=== PATIENT | male | born 1960 | race Caucasian/White ===

== ENCOUNTER 2017-06-24 08:46 | Emergency (ER) | payer SELFPAY ==
[~2017-06-24] VITALS: Ht 177.8 cm; Wt 72.0 kg
[~2017-06-24 08:46] MED LIST: AMLO10 PO; HYDR-3288 PO; METO25TA3 PO; VENTAER INH
[2017-06-24 08:50] VITALS: BP 133/61; PULSE 97; RESP 16; TEMP 97.6; O2SAT 96
[2017-06-24] MEDS ORDERED: HYDR-3535 PO (08:55)
[2017-06-24] MEDS ORDERED: GABA300C5 PO (08:55)
[2017-06-24] MEDS ORDERED: ROBA750T PO (08:55)
[2017-06-24] MEDS ORDERED: methylPREDNISolone SOD SUCC 125 MG/2 ML VIAL IV PUSH ONE (09:00)
[2017-06-24] MEDS ORDERED: SODIUM CHLORIDE 0.9% FLUSH 10 ML FLUSH IVF PRN (09:00)
[2017-06-24 09:02] VITALS: BP 145/78; PULSE 77; RESP 18; O2SAT 96
--- NOTE | 2017-06-24 09:04 | PD ---
HPI Chief Complaint: Respiratory Symptoms Time Seen by Provider: 08:52 Travel History International Travel<30 days: No Contact w/Intl Traveler<30days: No Traveled to known affect area: No History of Present Illness HPI This 56-year-old male is complaining of shortness of breath for several days. He has a history of COPD. He smokes one pack per day. He has been having a productive cough for several weeks. The last few days he's been feeling short of breath. Feels weak overall. He is not having chest pain. He does have a history of paroxysmal atrial fibrillation. He had is a recovering alcoholic and has not drank for 9 months. He goes to . His atrial fibrillation was related to drinking. He is not in atrial fibrillation at this time. PFSH Past Medical History Arthritis: Yes (HIPS) Anxiety: Yes Depression: No Heart Rhythm Problems: Yes (SVT THIS ADMISSION) Cancer: No Cardiovascular Problems: No High Cholesterol: No (UNKNOWN) Chest Pain: No Congestive Heart Failure: No COPD: Yes Cerebrovascular Accident: No Diabetes: No Diminished Hearing: No Endocrine: No Gastrointestinal Disorders: Yes (DIVERTICULITIS, INGUINAL HERNIA) GERD: Yes Genitourinary: No Headaches: No Immune Disorder: No Implanted Vascular Access Dvce: Yes Musculoskeletal: Yes Neurologic: No Psychiatric: No Reproductive: No Respiratory: Yes (HX OF PNEUMONIA X3) Migraines: No Seizures: Yes (R/T ETOH WITHDRAWAL, LAST SEIZURE 6 YRS AGO) Sleep Apnea: No Thyroid Disease: No Ulcer: Yes Influenza Vaccination: No ?: Not Past Surgical History AICD: No Arteriovenous Shunt: No Body Medical Devices: pins in right ankle Insulin Pump: No Joint Replacement: No Pacemaker: No Other Surgery: Yes Social History Alcohol Use: No (DENIES) Tobacco Use: Yes (1 PPD) Substance Use: No Allergies-Medications (Allergen,Severity, Reaction): Coded Allergies: No Known Allergies (Verified , 06/24/17) Reported Meds & Prescriptions Reported Meds & Active Scripts Active Ventolin Hfa 18 GM Inh (Albuterol Sulfate) 90 Mcg/Act Aer 1 Puff INH Q4H PRN Reported Gabapentin 300 Mg Cap 300 Mg PO HS Robaxin (Methocarbamol) 750 Mg Tab 750 Mg PO QID Lortab (Hydrocodone-Acetaminophen) 10-325 Mg Tab 1 Tab PO Q6H PRN Review of Systems General / Constitutional: No: Fever, Chills Eyes: No: Diploplia, Blurred Vision HENT: No: Headaches, Vertigo Cardiovascular: Positive: Dyspnea on exertion, No: Chest Pain or Discomfort, Palpitations Respiratory: Positive: Cough, Shortness of Breath, Wheezing Gastrointestinal: No: Nausea, Vomiting Genitourinary: No: Urgency, Frequency Musculoskeletal: No: Myalgias, Arthralgias Skin: No Rash Neurologic: Positive: Weakness Hematologic/Lymphatic: No: Easy Bruising Physical Exam Narrative GENERAL: Well-developed male. Oxygen saturation on arrival is 97% SKIN: Focused skin assessment warm/dry. HEAD: Atraumatic. Normocephalic. EYES: Pupils equal and round. No scleral icterus. No injection or drainage. ENT: No nasal bleeding or discharge. Mucous membranes pink and moist. NECK: Trachea midline. No JVD. CARDIOVASCULAR: Regular rate and rhythm. No murmur appreciated. RESPIRATORY: No accessory muscle use. There are scattered wheezes and rhonchi Breath sounds equal bilaterally. GASTROINTESTINAL: Abdomen soft, non-tender, nondistended. Hepatic and splenic margins not palpable. MUSCULOSKELETAL: No obvious deformities. No clubbing. No cyanosis. No edema. NEUROLOGICAL: Awake and alert. No obvious cranial nerve deficits. Motor grossly within normal limits. Normal speech. PSYCHIATRIC: Appropriate mood and affect; insight and judgment normal. Data Data Last Documented VS Vital Signs Date Time Temp Pulse Resp B/P (MAP) Pulse Ox O2 Delivery O2 Flow Rate FiO2 06/24/17 10:08 18 95 Room Air 06/24/17 10:07 95 149/78 (101) 06/24/17 08:50 97.6 Orders Orders Complete Blood Count With Diff (06/24/17 08:59) Comprehensive Metabolic Panel (06/24/17 08:59) Iv Access Insert/Monitor (06/24/17 08:59) Ecg Monitoring (06/24/17 08:59) Oximetry (06/24/17 08:59) Oxygen Administration (06/24/17 08:59) Chest, Single Ap (06/24/17 08:59) Sodium Chloride 0.9% Flush (Ns Flush) (06/24/17 09:00) Methylprednisolone So Succ Inj (Solumedr (06/24/17 09:00) Albuterol-Ipratropium Neb (Duoneb Neb) (06/24/17 09:00) Ct Thorax/ Chest W Iv Contrast (06/24/17 10:10) Acetamin-Hydrocod 325-5 Mg ([place] 5-325 (06/24/17 10:15) Iohexol 350 Inj (Omnipaque 350 Inj) (06/24/17 10:50) Labs Laboratory Tests Test 06/24/17 09:05 White Blood Count 6.6 TH/MM3 Red Blood Count 4.84 MIL/MM3 Hemoglobin 15.8 GM/DL Hematocrit 46.9 % Mean Corpuscular Volume 97.0 FL Mean Corpuscular Hemoglobin 32.5 PG Mean Corpuscular Hemoglobin Concent 33.5 % Red Cell Distribution Width 12.9 % Platelet Count 225 TH/MM3 Mean Platelet Volume 7.3 FL Neutrophils (%) (Auto) 73.5 % Lymphocytes (%) (Auto) 19.6 % Monocytes (%) (Auto) 3.9 % Eosinophils (%) (Auto) 2.7 % Basophils (%) (Auto) 0.3 % Neutrophils # (Auto) 4.8 TH/MM3 Lymphocytes # (Auto) 1.3 TH/MM3 Monocytes # (Auto) 0.3 TH/MM3 Eosinophils # (Auto) 0.2 TH/MM3 Basophils # (Auto) 0.0 TH/MM3 CBC Comment DIFF FINAL Differential Comment Blood Urea Nitrogen 16 MG/DL Creatinine 0.84 MG/DL Random Glucose 120 MG/DL Total Protein 7.6 GM/DL Albumin 3.6 GM/DL Calcium Level 8.6 MG/DL Alkaline Phosphatase 91 U/L Aspartate Amino Transf (AST/SGOT) 6 U/L Alanine Aminotransferase (ALT/SGPT) 15 U/L Total Bilirubin 0.5 MG/DL Sodium Level 138 MEQ/L Potassium Level 4.3 MEQ/L Chloride Level 106 MEQ/L Carbon Dioxide Level 26.1 MEQ/L Anion Gap 6 MEQ/L Estimat Glomerular Filtration Rate 95 ML/MIN MDM Medical Decision Making Medical Screen Exam Complete: Yes Emergency Medical Condition: Yes Medical Record Reviewed: Yes Differential Diagnosis Differential includes COPD, pneumonia, Narrative Course Chest x-ray shows some areas of increased density in the left upper lobe and question of left hilar prominence. A CT was recommended. CT scan has been done. There are multiple areas of increased density seen in both lungs which are stable when compared to a CT pulmonary angiogram that was done in June 2014 so these areas of represent scarring. The patient has received repeated doses of albuterol with some improvement. Diagnosis Primary Impression: COPD (chronic obstructive pulmonary disease) Qualified Codes: J44.1 - Chronic obstructive pulmonary disease with (acute) exacerbation Scripts Albuterol 18 GM Inh (Ventolin Hfa 18 GM Inh) 90 Mcg/Act Aer 2 PUFF INH Q4H Y for SHORTNESS OF BREATH, #1 INHALER 0 Refills Prov: Neptali Mancini MD 06/24/17 Prednisone (Prednisone) 20 Mg Tab 20 MG PO DIRECTED, #24 TAB 0 Refills Take 60 MG daily x 4 days, then 40 MG x 4 days, then 20 MG daily x 4 days. Prov: Neptali Mancini MD 06/24/17 Amoxicillin (Amoxicillin) 500 Mg Tab 500 MG PO TID for Infection for 7 Days, TAB 0 Refills Prov: Neptali Mancini MD 06/24/17 Disposition: 01 DISCHARGE HOME Condition: Stable Neptali Mancini MD Jun 24, 2017 09:04
[2017-06-24 09:11] LABS: AUTOMATED NEUTROPHIL # 4.8 TH/MM3 (1.8-7.7); BASOPHIL % 0.3 % (0.0-2.0); EOSINOPHIL # 0.2 TH/MM3 (0-0.4); EOSINOPHIL % 2.7 % (0.0-4.0); HEMATOCRIT 46.9 % (39.0-51.0); HEMO FLAGS DIFF FINAL; LYMPH % 19.6 % (9.0-44.0); LYMPHOCYTE # 1.3 TH/MM3 (1.0-4.8); MEAN CORPUSCULAR HEMOGLOBIN 32.5 PG (27.0-34.0); MEAN CORPUSCULAR HGB CONC 33.5 % (32.0-36.0); MONO % 3.9 % (0.0-8.0); NEUT % 73.5 % (16.0-70.0); PLATELET COUNT 225 TH/MM3 (150-450); RED BLOOD COUNT 4.84 MIL/MM3 (4.50-5.90); RED CELL DISTRIBUTION WIDTH 12.9 % (11.6-17.2); WHITE BLOOD COUNT 6.6 TH/MM3 (4.0-11.0)
[2017-06-24] MEDS: RESP: ALBUTEROL 2.5 MG/IPRATROPIUM 0.5 MG NEB (SCH) INH ×2 (09:14→09:15)
--- NOTE | 2017-06-24 09:27 | RADRPT ---
EXAM DATE/TIME: 06/24/2017 09:10 [facility] COMPARISON: CHEST SINGLE AP, August 22, 2016, 6:34. INDICATIONS : Shortness of breath for 5 days MEDICAL HISTORY : None. SURGICAL HISTORY : None. ENCOUNTER: Initial ACUITY: 4 - 6 days PAIN SCORE: 3/10 LOCATION: Bilateral chest FINDINGS: The heart size is normal. The lungs appear hyperinflated. There is increased density at the superior lateral left upper lobe. A there some stable linear density seen in the right apex. The left hilar r egion appears prominent. A significant effusion is not seen. CONCLUSION: Possible increased density at the superior lateral left upper lung and prominence of the left hilar r egion. These areas could be further evaluated with a CT examination of the chest. Given the hilar pro minence, ideally this should be performed with intravenous contrast. Perry Benítez MD on June 24, 2017 at 9:23 Board Certified Radiologist. This report was verified electronically.
[2017-06-24 09:54] LABS: BICARBONATE 26.1 MEQ/L (21.0-32.0)
[2017-06-24 09:57] LABS: ALT (GPT) 15 U/L (12-78); AST (GOT) 6 U/L (15-37); GLOMERULAR FILTRATION RATE 95 ML/MIN (>89)
[2017-06-24 09:59] LABS: ANION GAP 6 MEQ/L (5-15); CHLORIDE 106 MEQ/L (98-107); POTASSIUM 4.3 MEQ/L (3.5-5.1); SODIUM (NA) 138 MEQ/L (136-145); TOTAL BILIRUBIN ADULT 0.5 MG/DL (0.2-1.0)
[2017-06-24 10:00] LABS: ALKALINE PHOSPHATASE 91 U/L (45-117); BLOOD UREA NITROGEN 16 MG/DL (7-18)
[2017-06-24 10:07] VITALS: BP 149/78; PULSE 95; RESP 18; O2SAT 95
[2017-06-24] MEDS ORDERED: ACETAMINOPHEN/HYDROcodone 325 MG/5 MG TAB PO ONE (10:15)
[2017-06-24] MEDS ORDERED: IOHEXOL 350 MG/ML 10 ML VIAL (for RAD DIAG) IVCONTRAST ONE (10:50)
--- NOTE | 2017-06-24 10:59 | RADRPT ---
EXAM DATE/TIME: 06/24/2017 10:35 [facility] COMPARISON: CT PULMONARY ANGIOGRAM, June 22, 2014, 16:11. INDICATIONS : Mass seen on Chest x-ray, shortness of breath for 5 days. IV CONTRAST: 75 cc Omnipaque 350 (iohexol) IV RADIATION DOSE: 10.32 CTDIvol (mGy) MEDICAL HISTORY : Diverticulitis. Cardiovascular disease Chronic obstructive pulmonary disease.Pneumonia x 3; C diff 20 14. Smoker SURGICAL HISTORY : None. ENCOUNTER: Initial ACUITY: 4 - 6 days PAIN SCALE: 6/10 LOCATION: chest TECHNIQUE: Volumetric scanning of the chest was performed. Using automated exposure control and adjustment of t he mA and/or kV according to patient size, radiation dose was kept as low as reasonably achievable to obtain optimal diagnostic quality images. DICOM format image data is available electronically for review and comparison. Follow-up recommendations for detected pulmonary nodules are based at a minimum on nodule size and pa tient risk factors according to Fleischner Society Guidelines. FINDINGS: LUNGS: There is emphysematous change in the upper lungs. There is increased density seen in the superior lat eral left upper chest that time the density on the chest x-ray. This measures approximately 3.8 x 1.9 cm. There is also an irregular 2 cm mass in the right upper lung. There is increased density in the posterior left upper lung measuring 2.0 x 1.3 cm. There is also some patchy density seen in the poste rior medial aspect of the superior segment of the left lower lobe. All these areas were present on th e prior CT of the chest performed on 06/22/2014. PLEURA: There is no pleural thickening or pleural effusion. MEDIASTINUM: The central pulmonary arteries appears somewhat prominent accounting for the prominence of the left h ilar region. Coronary artery calcification are present. There is a stable 1.3 cm soft tissue density/ possible lymph node seen in the right hilar region. No new or enlarging lymph nodes are seen. AXILLAE: Within normal limits. No lymphadenopathy. SKELETAL: Within normal limits for patient age. MISCELLANEOUS: The visualized upper abdominal organs demonstrate no acute abnormality. CONCLUSION: 1. Multiple areas of increased density seen in both lungs being more numerous on the left. These all appear stable suggesting that likely represent areas of scarring. 2. Emphysematous change in the lungs. Perry Benítez MD on June 24, 2017 at 10:50 Board Certified Radiologist. This report was verified electronically.
[2017-06-24 11:12] VITALS: RESP 18
[2017-06-24] MEDS ORDERED: AMOX500T PO (11:12)
[2017-06-24] MEDS ORDERED: PRED20 PO (11:12)
[2017-06-24] MEDS ORDERED: VENTAER INH (11:12)
[2017-06-24 11:18] VITALS: BP 144/75
== END 2017-06-24 11:21 | disposition home or self-care (01) ==
LOC: PHED 08:46
DX: J44.1 Chronic obstructive pulmonary disease with (acute) exacerbation (principal); R53.1 Weakness; F17.200 Nicotine dependence, unspecified, uncomplicated; Z87.39 Personal history of other diseases of the musculoskeletal system and connective tissue; Z86.59 Personal history of other mental and behavioral disorders; Z86.79 Personal history of other diseases of the circulatory system; Z87.09 Personal history of other diseases of the respiratory system; Z87.19 Personal history of other diseases of the digestive system; Z86.69 Personal history of other diseases of the nervous system and sense organs
CPT/HCPCS: 71010; 71260; 80053; 85025; 94640; 94664; 96374; 99285; J2930; Q9967

== ENCOUNTER 2017-11-09 06:52 | Inpatient (IN) | payer SELFPAY ==
[~2017-11-09] VITALS: Ht 177.8 cm; Wt 69.0 kg
[2017-11-09] VITALS (8 sets, daily range): BP systolic 108–162; BP diastolic 69–97; PULSE 93–114; RESP 16–20; TEMP 97.5–99.3; O2SAT 93–96
[~2017-11-09 06:52] MED LIST changes: -AMLO10 PO; +AMOX500T PO; +GABA300C5 PO; -HYDR-3288 PO; +HYDR-3535 PO; -METO25TA3 PO; +PRED20 PO; +ROBA750T PO
--- NOTE | 2017-11-09 07:38 | PD ---
HPI Chief Complaint: Respiratory Symptoms Time Seen by Provider: 07:27 Travel History International Travel<30 days: No Contact w/Intl Traveler<30days: No Traveled to known affect area: No History of Present Illness HPI 57yo M with PMH of COPD presents to the ED with c/o sob for 1 week. Said he feels worst with walking and feels sob just walking 10 steps which is new for him. Has midsternal chest soreness and not really pain. +Cough. Also with throat pain for 2 weeks. Denies any fever, n/v, abdominal pain, focal weakness or numbness. Pt fell down a few steps of stairs 2 days ago but only mention it when I ask about the ecchymoses around left eye. Denies any LOC, headache, visual changes or any anticoagulation. PFSH Past Medical History Arthritis: Yes (HIPS) Anxiety: Yes Depression: No Heart Rhythm Problems: Yes (SVT THIS ADMISSION) Cancer: No Cardiovascular Problems: Yes (hx of htn but declines at this time) High Cholesterol: No (UNKNOWN) Chest Pain: No Congestive Heart Failure: No COPD: Yes Cerebrovascular Accident: No Diabetes: No Diminished Hearing: No Endocrine: No Gastrointestinal Disorders: Yes (DIVERTICULITIS, INGUINAL HERNIA) GERD: Yes Genitourinary: No Headaches: No Immune Disorder: No Implanted Vascular Access Dvce: Yes Musculoskeletal: Yes Neurologic: No Psychiatric: No Reproductive: No Respiratory: Yes (copd) Migraines: No Seizures: Yes (R/T ETOH WITHDRAWAL, LAST SEIZURE 6 YRS AGO) Sleep Apnea: No Thyroid Disease: No Ulcer: Yes Past Surgical History AICD: No Arteriovenous Shunt: No Body Medical Devices: pins in right ankle Insulin Pump: No Joint Replacement: No Pacemaker: No Other Surgery: Yes Social History Alcohol Use: No (DENIES) Tobacco Use: Yes (1 PPD) Substance Use: No Allergies-Medications (Allergen,Severity, Reaction): Coded Allergies: No Known Allergies (Verified Adverse Reaction, Unknown, 11/09/17) Reported Meds & Prescriptions Reported Meds & Active Scripts Active Ventolin Hfa 18 GM Inh (Albuterol Sulfate) 90 Mcg/Act Aer 1 Puff INH Q4H PRN Reported [place] (Hydrocodone-Acetaminophen) 7.5-325 mg Tab 1 Tab PO Q6H PRN Gabapentin 300 Mg Cap 300 Mg PO HS Robaxin (Methocarbamol) 750 Mg Tab 750 Mg PO QID Review of Systems Except as stated in HPI: all other systems reviewed are Neg Physical Exam Narrative GENERAL: 57yo M in mild distress. SKIN: Focused skin assessment warm/dry. HEAD: Atraumatic. Normocephalic. EYES: Pupils equal and round. No scleral icterus. No injection or drainage. ENT: No nasal bleeding or discharge. Mucous membranes pink and moist. NECK: Trachea midline. No JVD. CARDIOVASCULAR: Regular rate and rhythm. No murmur appreciated. RESPIRATORY: No accessory muscle use. Coarse breath sounds bilaterally. GASTROINTESTINAL: Abdomen soft, non-tender, nondistended. +Ecchymoses in left mid abdomen. MUSCULOSKELETAL: No obvious deformities. No clubbing. No cyanosis. No edema. NEUROLOGICAL: Awake and alert. No obvious cranial nerve deficits. Motor grossly within normal limits. Normal speech. PSYCHIATRIC: Appropriate mood and affect; insight and judgment normal. Data Data Last Documented VS Vital Signs Date Time Temp Pulse Resp B/P (MAP) Pulse Ox O2 Delivery O2 Flow Rate FiO2 11/09/17 08:45 103 20 121/70 (87) 96 Room Air 11/09/17 07:02 97.5 Orders Orders Complete Blood Count With Diff (11/09/17 07:37) Basic Metabolic Panel (Bmp) (11/09/17 07:37) Act Partial Throm Time (Ptt) (11/09/17 07:37) Prothrombin Time / Inr (Pt) (11/09/17 07:37) Magnesium (Mg) (11/09/17 07:37) Troponin I (11/09/17 07:37) Chest, Single Ap (11/09/17 07:37) Methylprednisolone So Succ Inj (Solumedr (11/09/17 07:45) Albuterol-Ipratropium Neb (Duoneb Neb) (11/09/17 07:45) B-Type Natriuretic Peptide (11/09/17 07:37) Electrocardiogram (11/09/17 ) Sodium Chlor 0.9% 1000 Ml Inj (Ns 1000 M (11/09/17 09:00) Thiamine Inj (Thiamine Inj) (11/09/17 09:15) Lorazepam Inj (Ativan Inj) (11/09/17 09:15) Admit Order (Ed Use Only) (11/09/17 09:16) Labs Laboratory Tests Test 11/09/17 07:50 White Blood Count 10.9 TH/MM3 Red Blood Count 4.14 MIL/MM3 Hemoglobin 15.1 GM/DL Hematocrit 44.0 % Mean Corpuscular Volume 106.5 FL Mean Corpuscular Hemoglobin 36.5 PG Mean Corpuscular Hemoglobin Concent 34.3 % Red Cell Distribution Width 15.5 % Platelet Count 114 TH/MM3 Mean Platelet Volume 7.8 FL Neutrophils (%) (Auto) 86.2 % Lymphocytes (%) (Auto) 8.3 % Monocytes (%) (Auto) 3.1 % Eosinophils (%) (Auto) 0.7 % Basophils (%) (Auto) 1.7 % Neutrophils # (Auto) 9.4 TH/MM3 Lymphocytes # (Auto) 0.9 TH/MM3 Monocytes # (Auto) 0.3 TH/MM3 Eosinophils # (Auto) 0.1 TH/MM3 Basophils # (Auto) 0.2 TH/MM3 CBC Comment DIFF FINAL Differential Comment Prothrombin Time 9.2 SEC Prothromb Time International Ratio 0.9 RATIO Activated Partial Thromboplast Time 31.0 SEC Blood Urea Nitrogen 5 MG/DL Creatinine 0.51 MG/DL Random Glucose 78 MG/DL Calcium Level 8.4 MG/DL Magnesium Level 1.8 MG/DL Sodium Level 119 MEQ/L Potassium Level 3.8 MEQ/L Chloride Level 80 MEQ/L Carbon Dioxide Level 27.5 MEQ/L Anion Gap 12 MEQ/L Estimat Glomerular Filtration Rate 168 ML/MIN Troponin I LESS THAN 0.02 NG/ML B-Type Natriuretic Peptide 36 PG/ML MDM Medical Decision Making Medical Screen Exam Complete: Yes Emergency Medical Condition: Yes Interpretation(s) EKG: NSR 95bpm. Normal axis. TWI V2. ST depression V4, V5. Differential Diagnosis COPD exacerbation vs. pneumonia vs. URI Narrative Course 57yo M with COPD here with worsening sob for 1 week. Feels like his COPD. Does not use oxygen at home. Labs reviewed, no leukocytosis. H/H normal. Thrombocytopenic at 114,000 which he has had before. CXR showed hyperinflation with stable biapical and bibasilar pleural parenchymal scarring. No superimposed acute infiltrate. Pt is mildly tachycardic and has a history of alcohol abuse on chart review. He denies drinking alcohol every day but his informed me that he was drinking all the time and she is trying to get him back to AA meetings. Pt has ecchymoses in left face and left abdomen but does not want further evaluation of it including CT scan. He does not want any tenderness on abdominal exam and has no focal neurologic deficits. He does appear dehydrated and has some tongue fasciculation and tachycardia so will give ativan 1mg, NS IVF and thiamine. Pt reevaluated after duonebs and methylprednisolone and said he feels a litter better. BMP showed hyponatremia with sodium of 119. It is new from prior in 06/2017. Troponin negative. BNP 36. Discussed with Dr. Seay and accepted to her service. Diagnosis Primary Impression: Hyponatremia Additional Impression: COPD exacerbation Admitting Information Admitting Physician Requests: Admit Sangeeta Watts DO Nov 09, 2017 07:38
[2017-11-09] MEDS ORDERED: methylPREDNISolone SOD SUCC 125 MG/2 ML VIAL IV PUSH ONE (07:45)
[2017-11-09] MEDS: RESP: ALBUTEROL 2.5 MG/IPRATROPIUM 0.5 MG NEB (SCH) INH ×2 (07:52→07:53)
[2017-11-09 08:07] LABS: AUTOMATED NEUTROPHIL # 9.4 TH/MM3 (1.8-7.7); BASOPHIL # 0.2 TH/MM3 (0-0.2); BASOPHIL % 1.7 % (0.0-2.0); EOSINOPHIL # 0.1 TH/MM3 (0-0.4); EOSINOPHIL % 0.7 % (0.0-4.0); HEMOGLOBIN 15.1 GM/DL (13.0-17.0); LYMPH % 8.3 % (9.0-44.0); LYMPHOCYTE # 0.9 TH/MM3 (1.0-4.8); MEAN CELL VOLUME 106.5 FL (80.0-100.0); MEAN CORPUSCULAR HEMOGLOBIN 36.5 PG (27.0-34.0); MEAN CORPUSCULAR HGB CONC 34.3 % (32.0-36.0); MEAN PLATELET VOLUME 7.8 FL (7.0-11.0); MONO % 3.1 % (0.0-8.0); MONOCYTE # 0.3 TH/MM3 (0-0.9); NEUT % 86.2 % (16.0-70.0); PLATELET COUNT 114 TH/MM3 (150-450); RED BLOOD COUNT 4.14 MIL/MM3 (4.50-5.90); RED CELL DISTRIBUTION WIDTH 15.5 % (11.6-17.2); WHITE BLOOD COUNT 10.9 TH/MM3 (4.0-11.0)
[2017-11-09 08:21] LABS: INTERNATIONAL NORMALIZED RATIO 0.9 RATIO; PROTHROMBIN TIME - PATIENT 9.2 SEC (9.8-11.6)
--- NOTE | 2017-11-09 08:22 | RADRPT ---
EXAM DATE/TIME: 11/09/2017 07:38 [facility] COMPARISON: CHEST SINGLE AP, June 24, 2017, 9:10. INDICATIONS : Shortness of breath. MEDICAL HISTORY : Hypertension. Chronic obstructive pulmonary disease. SURGICAL HISTORY : None. ENCOUNTER: Initial ACUITY: 4 - 6 days PAIN SCORE: 0/10 LOCATION: Bilateral chest FINDINGS: A single view of the chest demonstrates lungs remain hyperinflated with biapical scarring. There is s ome blunting of costophrenic angles characteristic of pleural-parenchymal scarring in this region as well. No superimposed acute infiltrate. Heart size is normal. Dextroscoliosis of the dorsal spine. Os seous structures are otherwise intact. CONCLUSION: 1. Hyperinflation with stable biapical and bibasilar pleural-parenchymal scarring. 2. No superimposed acute infiltrate. Zeke Hernandez MD on November 09, 2017 at 8:19 Board Certified Radiologist. This report was verified electronically.
[2017-11-09] MEDS ORDERED: HYDR-3288 PO (08:34)
[2017-11-09] MEDS ORDERED: SODIUM CHLOR 0.9% 1000 ML INJ 1,000 ML IV ONE (09:00)
[2017-11-09 09:04] LABS: BICARBONATE 27.5 MEQ/L (21.0-32.0); CALCIUM 8.4 MG/DL (8.5-10.1); CHLORIDE 80 MEQ/L (98-107); CREATININE 0.51 MG/DL (0.60-1.30); GLOMERULAR FILTRATION RATE 168 ML/MIN (>89); GLUCOSE,RANDOM 78 MG/DL (74-106); MAGNESIUM 1.8 MG/DL (1.5-2.5); SODIUM (NA) 119 MEQ/L (136-145); TROPONIN I LESS THAN 0.02 NG/ML (0.02-0.05)
[2017-11-09 09:06] LABS: BLOOD UREA NITROGEN 5 MG/DL (7-18)
[2017-11-09] MEDS ORDERED: THIAMINE INJ 100 MG in SODIUM CHLORIDE 0.9% INJ 100 ML IV ONE (09:15)
[2017-11-09] MEDS ORDERED: LORazepam 2 MG/ML VIAL IV PUSH ONE (09:15)
[2017-11-09] MEDS ORDERED: SODIUM CHLOR 0.9% 1000 ML INJ 1,000 ML IV SCH (10:00)
[2017-11-09] MEDS ORDERED: ACETAMINOPHEN 325 MG TAB PO PRN (10:00)
[2017-11-09] MEDS ORDERED: MAGNESIUM HYDROXIDE SUSP 30 ML CUP PO PRN (10:00)
[2017-11-09] MEDS ORDERED: NALOXONE HCL 0.4 MG/ML AMP IV PUSH PRN (10:00)
[2017-11-09] MEDS ORDERED: METOCLOPRAMIDE HCL 10 MG/2 ML VIAL IV PUSH PRN (10:00)
[2017-11-09] MEDS: SODIUM CHLOR 0.9% 1000 ML INJ 1,000 ML IV SCH ×3 (10:35→22:06)
[2017-11-09 13:37] LABS: BICARBONATE 21.6 MEQ/L (21.0-32.0); CREATININE 0.36 MG/DL (0.60-1.30)
--- NOTE | 2017-11-09 13:44 | EKG ---
Date Performed: 11/09/2017 Time Performed: 08:10:02 PTAGE: 57 years EKG: Sinus rhythm NONSPECIFIC INTRAVENTRICULAR CONDUCTION DELAY BORDERLINE ECG PREVIOUS TRACING : 08/22/2016 12.15 Compared to previous tracing, sinus rhythm has replaced atr ial fibrillation, heart rate has decreased. DOCTOR: Chava Vega Interpretating Date/Time 11/09/2017 13:42:05
[2017-11-09] MEDS ORDERED: FLUMAZENIL 0.5 MG/5 ML VIAL IV PUSH PRN (13:45)
[2017-11-09] MEDS ORDERED: cloNIDine HCL 0.1 MG TAB PO PRN (13:45)
[2017-11-09] MEDS ORDERED: ONDANSETRON HCL 4 MG/2 ML VIAL IV PUSH PRN (13:45)
--- NOTE | 2017-11-09 13:48 | HHI.HP ---
[facility] Service [facility] Primary Care Physician Physician [facility] Admission Diagnosis Hyponatremia, COPD exacerbation Diagnoses: Chief Complaint: Shortness of breath Travel History International Travel<30 Days: No Contact w/Intl Traveler <30 Da: No Traveled to Known Affected Are: No Sepsis Criteria SIRS Criteria (2 or more): Heart rate over 90 History of Present Illness This patient is a very pleasant 57-year-old gentleman with a history of COPD COPD and alcohol dependency. He came to the emergency room with increasing shortness of breath for 1 week and worse over the last 2 days. He has a hand- held inhaler at home which was not helpful in improving his breathing. He had some increased dyspnea on exertion and difficulty taking deep breaths. He does admit a cough. He has had a history of alcohol dependency in the past over the last several months has relapsed after quite a long three-year period of sobriety. Patient says he drinks at least a 12 pack a day. He presents at this time with bruises, frequent falls, hyponatremic and generalized weak and malnourished status. Patient says his respiratory status did improve after nebulizer. He is found to have a sodium of 119 and has been admitted to the hospital for further evaluation of hyponatremia and COPD exacerbation. Review of Systems Constitutional: DENIES: Diaphoretic episodes, Fatigue, Fever, Weight gain, Weight loss, Chills, Dizziness, Change in appetite, Night Sweats Endocrine: DENIES: Heat/cold intolerance, Polydipsia, Polyuria, Polyphagia Eyes: DENIES: Blurred vision, Diplopia, Eye inflammation, Eye pain, Vision loss , Photosensitivity, Double Vision Respiratory: COMPLAINS OF: Cough, Sputum production, Shortness of breath, DENIES: Apneas, Snoring, Wheezing, Hemoptysis Cardiovascular: DENIES: Chest pain, Palpitations, Syncope, Dyspnea on Exertion , PND, Lower Extremity Edema, Orthopnea, Claudication Gastrointestinal: DENIES: Abdominal pain, Black stools, Bloody stools, Constipation, Diarrhea, Nausea, Vomiting, Difficulty Swallowing, Anorexia Musculoskeletal: COMPLAINS OF: Joint pain, Back pain, DENIES: Muscle aches, Stiffness, Joint Swelling, Neck pain Integumentary: DENIES: Abnormal pigmentation, Nail changes, Pruritus, Rash Hematologic/lymphatic: DENIES: Bruising, Lymphadenopathy Immunologic/allergic: DENIES: Eczema, Urticaria Neurologic: DENIES: Abnormal gait, Headache, Localized weakness, Paresthesias, Seizures, Speech Problems, Tremor, Poor Balance Psychiatric: COMPLAINS OF: Anxiety, DENIES: Confusion, Mood changes, Depression , Hallucinations, Agitation, Suicidal Ideation, Homicidal Ideation, Delusions Except as stated in HPI: all other systems reviewed are Neg Past Family Social History Past Medical History Alcohol dependency COPD Chronic back pain Past Surgical History Inguinal hernia 2, ankle surgery Reported Medications Reviewed in the EMR, followed up with Dr. 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 Cool and dry. HEAD: Atraumatic. Normocephalic. No temporal or scalp tenderness. EYES: Pupils equal round and reactive. Extraocular motions intact. No scleral icterus. No injection or drainage. ENT: Nose without bleeding, purulent drainage or septal hematoma. Throat without erythema, tonsillar hypertrophy or exudate. Uvula midline. Airway patent. NECK: Trachea midline. No JVD or lymphadenopathy. Supple, nontender, no meningeal signs. CARDIOVASCULAR: Sinus tachycardia without appreciable murmurs, gallops, or rubs. RESPIRATORY: Clear to auscultation. Breath sounds equal bilaterally. No wheezes , rales, or rhonchi. GASTROINTESTINAL: Abdomen soft, non-tender, nondistended. No hepato-splenomegaly , or palpable masses. No guarding. MUSCULOSKELETAL: Extremities without clubbing, cyanosis, or edema. No joint tenderness, effusion, or edema noted. No calf tenderness. Negative Homans sign bilaterally. NEUROLOGICAL: Awake and alert. Cranial nerves II through XII intact. Motor and sensory grossly within normal limits. Five out of 5 muscle strength in all muscle groups. Normal speech. Laboratory Laboratory Tests Test 11/09/17 07:50 11/09/17 10:20 11/09/17 12:30 White Blood Count 10.9 Red Blood Count 4.14 Hemoglobin 15.1 Hematocrit 44.0 Mean Corpuscular Volume 106.5 Mean Corpuscular Hemoglobin 36.5 Mean Corpuscular Hemoglobin Concent 34.3 Red Cell Distribution Width 15.5 Platelet Count 114 Mean Platelet Volume 7.8 Neutrophils (%) (Auto) 86.2 Lymphocytes (%) (Auto) 8.3 Monocytes (%) (Auto) 3.1 Eosinophils (%) (Auto) 0.7 Basophils (%) (Auto) 1.7 Neutrophils # (Auto) 9.4 Lymphocytes # (Auto) 0.9 Monocytes # (Auto) 0.3 Eosinophils # (Auto) 0.1 Basophils # (Auto) 0.2 CBC Comment DIFF FINAL Differential Comment Prothrombin Time 9.2 Prothromb Time International Ratio 0.9 Activated Partial Thromboplast Time 31.0 Blood Urea Nitrogen 5 Creatinine 0.51 Random Glucose 78 Calcium Level 8.4 Magnesium Level 1.8 Sodium Level 119 Potassium Level 3.8 Chloride Level 80 Carbon Dioxide Level 27.5 Anion Gap 12 Estimat Glomerular Filtration Rate 168 Troponin I LESS THAN 0.02 B-Type Natriuretic Peptide 36 Urine Osmolality 152 Serum Osmolality 292 Result Diagram: 11/09/17 0750 11/09/17 0750 Imaging Last Impressions Chest X-Ray 11/09/17 0742 Signed Impressions: Service Date/Time: November 07:38 - CONCLUSION: 1. Hyperinflation with stable biapical and bibasilar pleural-parenchymal scarring. 2. No superimposed acute infiltrate. Zeke Hernandez MD Septic Shock Reassessment Septic shock perfusion: reassessment completed Caprini VTE Risk Assessment Caprini VTE Risk Assessment: Mod/High Risk (score >= 2) VTE Pharm Contraindication: High risk for bleeding Caprini Risk Assessment Model Point Value = 1 Point Value = 2 Point Value = 3 Point Value = 5 Age 41-60 Minor surgery BMI > 25 kg/m2 Swollen legs Varicose veins or History of unexplained or recurrent spontaneous Oral contraceptives or hormone replacement Sepsis (< 1 month) Serious lung disease, including pneumonia (< 1 month) Abnormal pulmonary function Acute myocardial infarction Congestive heart failure (< 1 month) History of inflammatory bowel disease Medical patient at bed rest Age 61-74 Arthroscopic surgery Major open surgery (> 45 min) Laparoscopic surgery (> 45 min) Malignancy Confined to bed (> 72 hours) Immobilizing plaster cast Central venous access Age >= 75 History of VTE Family history of VTE Factor V Leiden Prothrombin [id number] Lupus anticoagulant Anticardiolipin antibodies Elevated serum homocysteine Heparin-induced thrombocytopenia Other congenital or acquired thrombophilia Stroke (< 1 month) Elective arthroplasty Hip, pelvis, or leg fracture Acute spinal cord injury (< 1 month) Prophylaxis Regimen Total Risk Factor Score Risk Level Prophylaxis Regimen 0-1 Low Early ambulation 2 Moderate Order ONE of the following: *Sequential Compression Device (SCD) *Heparin 5000 units SQ BID 3-4 Higher Order ONE of the following medications: *Heparin 5000 units SQ TID *Enoxaparin/Lovenox 40 mg SQ daily (WT < 150 kg, CrCl > 30 mL/min) *Enoxaparin/Lovenox 30 mg SQ daily (WT < 150 kg, CrCl > 10-29 mL/min) *Enoxaparin/Lovenox 30 mg SQ BID (WT < 150 kg, CrCl > 30 mL/min) AND/OR *Sequential Compression Device (SCD) 5 or more Highest Order ONE of the following medications: *Heparin 5000 units SQ TID (Preferred with Epidurals) *Enoxaparin/Lovenox 40 mg SQ daily (WT < 150 kg, CrCl > 30 mL/min) *Enoxaparin/Lovenox 30 mg SQ daily (WT < 150 kg, CrCl > 10-29 mL/min) *Enoxaparin/Lovenox 30 mg SQ BID (WT < 150 kg, CrCl > 30 mL/min) AND *Sequential Compression Device (SCD) Assessment and Plan Problem List: (1) COPD exacerbation ICD Code: J44.1 - Chronic obstructive pulmonary disease with (acute) exacerbation Status: Acute Plan: Continue with nebulized bronchodilators, IV steroids, patient education on tobacco cessation (2) Hyponatremia ICD Code: E87.1 - Hypo-osmolality and hyponatremia Status: Acute Plan: Likely related to alcohol dependency and poor nutrition We will continue to follow serial labs with IV hydration (3) Alcohol abuse ICD Code: F10.10 - Alcohol abuse Status: Acute Plan: Patient will benefit from CIWA protocol We will follow clinically and recommend outpatient sobriety treatment programs We will continue with thiamine, folic acid and multivitamin clonidine (4) Falls frequently ICD Code: R29.6 - Repeated falls Plan: Probably due to alcoholic related weakness and gait instability We will evaluate with PT and continue vitamin support Code Status full code Discussed Condition With Patient, spouse, ER MD Physician Certification 2 Midnight Certification Type: Admission for Inpatient Services Order for Inpatient Services The services are ordered in accordance with Medicare regulations or non- Medicare payer requirements, as applicable. In the case of services not specified as inpatient-only, they are appropriately provided as inpatient services in accordance with the 2-midnight benchmark. Estimated LOS (days): 2 2 days is the estimated time the patient will need to remain in the hospital, assuming treatment plan goals are met and no additional complications. Post-Hospital Plan: Home Jennifer Seay MD Nov 09, 2017 13:48
[2017-11-09] MEDS ORDERED: PILL SPLITTER OTHER PRN (14:15)
[2017-11-09] MEDS: RESP: ALBUTEROL 2.5 MG/IPRATROPIUM 0.5 MG NEB (SCH) NEB ×2 (14:34→19:55)
[2017-11-09] MEDS: METHOCARBAMOL 500 MG TAB PO PRN (15:51)
[2017-11-09] MEDS: PANTOPRAZOLE SOD 40 MG DELAYED RELEASE TAB PO SCH (15:51)
[2017-11-09] MEDS: THIAMINE HCL 100 MG TAB PO SCH (15:51)
[2017-11-09] MEDS: REMOVE OLD PATCH T-DERMAL SCH (15:52)
[2017-11-09] MEDS: NICOTINE 21 MG/24 HR PATCH T-DERMAL SCH (15:52)
[2017-11-09] MEDS: ACETAMINOPHEN/HYDROcodone 325 MG/7.5 MG TAB PO PRN ×2 (15:52→22:05)
[2017-11-09] MEDS: FOLIC ACID 1 MG TAB PO SCH (16:00)
[2017-11-09] MEDS: LORazepam 2 MG/ML VIAL IV PUSH PRN (18:25)
[2017-11-09] MEDS: methylPREDNISolone SOD SUCC 40 MG/1 ML VIAL IV PUSH SCH (18:25)
[2017-11-09] MEDS: SODIUM CHLORIDE 0.9% FLUSH 10 ML FLUSH IV FLUSH SCH (20:47)
[2017-11-09] MEDS: GABAPENTIN 300 MG CAP PO SCH (20:47)
[2017-11-10] VITALS: BP 147/89; PULSE 82; RESP 20; TEMP 97.6; O2SAT 94
[2017-11-10] MEDS: methylPREDNISolone SOD SUCC 40 MG/1 ML VIAL IV PUSH SCH ×3 (00:07→11:00)
[2017-11-10 04:00] VITALS: BP 124/86; PULSE 106; RESP 20; TEMP 97.7; O2SAT 93
[2017-11-10] MEDS: ACETAMINOPHEN/HYDROcodone 325 MG/7.5 MG TAB PO PRN ×4 (04:37→22:55)
[2017-11-10] MEDS: METHOCARBAMOL 500 MG TAB PO PRN ×2 (05:09→18:27)
[2017-11-10] MEDS: LORazepam 1 MG TAB PO PRN ×2 (05:47→10:59)
[2017-11-10 06:45] LABS: BASOPHIL % 0.1 % (0.0-2.0); EOSINOPHIL % 0.1 % (0.0-4.0); HEMATOCRIT 40.2 % (39.0-51.0); HEMOGLOBIN 13.8 GM/DL (13.0-17.0); LYMPH % 4.2 % (9.0-44.0); LYMPHOCYTE # 0.4 TH/MM3 (1.0-4.8); MEAN CELL VOLUME 106.2 FL (80.0-100.0); MEAN CORPUSCULAR HEMOGLOBIN 36.5 PG (27.0-34.0); MEAN CORPUSCULAR HGB CONC 34.4 % (32.0-36.0); MEAN PLATELET VOLUME 8.8 FL (7.0-11.0); MONO % 2.4 % (0.0-8.0); MONOCYTE # 0.2 TH/MM3 (0-0.9); NEUT % 93.2 % (16.0-70.0); PLATELET COUNT 96 TH/MM3 (150-450); RED BLOOD COUNT 3.78 MIL/MM3 (4.50-5.90); RED CELL DISTRIBUTION WIDTH 15.3 % (11.6-17.2); WHITE BLOOD COUNT 8.6 TH/MM3 (4.0-11.0)
[2017-11-10] MEDS: RESP: ALBUTEROL 2.5 MG/IPRATROPIUM 0.5 MG NEB (SCH) NEB ×3 (07:25→20:22)
[2017-11-10 08:51] VITALS: BP 115/80; PULSE 94; RESP 18; TEMP 96.3; O2SAT 92
[2017-11-10] MEDS: SODIUM CHLOR 0.9% 1000 ML INJ 1,000 ML IV SCH ×2 (09:03→17:30)
[2017-11-10] MEDS: SODIUM CHLORIDE 0.9% FLUSH 10 ML FLUSH IV FLUSH SCH ×2 (09:03→19:31)
[2017-11-10] MEDS: THIAMINE HCL 100 MG TAB PO SCH (09:04)
[2017-11-10] MEDS: FOLIC ACID 1 MG TAB PO SCH (09:04)
[2017-11-10] MEDS: NICOTINE 21 MG/24 HR PATCH T-DERMAL SCH (09:04)
[2017-11-10] MEDS: MULTIVITAMIN TAB PO SCH (09:04)
[2017-11-10] MEDS: PANTOPRAZOLE SOD 40 MG DELAYED RELEASE TAB PO SCH (09:04)
[2017-11-10] MEDS ORDERED: PNEUMOCOCCAL POLYVALENT INJ 25 MCG/0.5 ML SYR IM ONE (10:00)
[2017-11-10] MEDS ORDERED: INFLUENZA VIRUS VACCINE (QUADRIVALENT) 0.5 ML SYR IM ONE (10:00)
[2017-11-10 12:00] VITALS: BP 128/75; PULSE 93; RESP 18; TEMP 96.8; O2SAT 96
[2017-11-10 13:49] LABS: BICARBONATE 25.8 MEQ/L (21.0-32.0); CALCIUM 8.9 MG/DL (8.5-10.1); CREATININE 0.72 MG/DL (0.60-1.30)
[2017-11-10 16:00] VITALS: BP 156/90; PULSE 78; RESP 18; TEMP 96.1; O2SAT 98
[2017-11-10] MEDS: LORazepam 2 MG TAB PO PRN ×2 (18:26→20:59)
--- NOTE | 2017-11-10 19:27 | HHI.PR ---
Subjective Remarks Delirium tremens symptoms of hallucination and paresthesias. Tremors are not significant. Patient has a gradual improvement in his hyponatremia. No new complaints from the patient. Situation discussed with the patient and his and sister. Objective Vital Signs Date Time Temp Pulse Resp B/P (MAP) Pulse Ox O2 Delivery O2 Flow Rate FiO2 11/10/17 17:53 18 11/10/17 16:00 96.1 78 18 156/90 (112) 98 11/10/17 12:00 96.8 93 18 128/75 (92) 96 11/10/17 08:51 96.3 94 18 115/80 (92) 92 11/10/17 04:00 97.7 106 20 124/86 (99) 93 11/10/17 00:00 97.6 82 20 147/89 (108) 94 11/09/17 20:00 98.7 98 20 162/82 (108) 93 I/O 11/09/17 11/09/17 11/09/17 11/10/17 11/10/17 11/10/17 06:59 14:59 22:59 06:59 14:59 22:59 Intake Total 1900 ml 1040 ml 1100 ml Output Total 300 ml Balance 1900 ml 1040 ml 800 ml Intake Oral 600 ml 240 ml 300 ml IV Total 1300 ml 800 ml 800 ml Output Urine Total 300 ml # Voids 8 1 # Bowel Movements 0 1 Result Diagram: 11/10/17 0600 11/10/17 1240 Objective Remarks GENERAL: NAD, A&Ox3 HEAD: Normocephalic. NECK: Supple, trachea midline. No lymphadenopathy. EYES: No scleral icterus. No injection or drainage. CARDIOVASCULAR: Regular rate and rhythm without murmurs, gallops, or rubs. RESPIRATORY: Breath sounds equal bilaterally. No accessory muscle use. GASTROINTESTINAL: Abdomen soft, non-tender, nondistended. MUSCULOSKELETAL: No cyanosis, or edema. SKIN: Warm and dry. NEURO: No focal neurological deficitis. A/P Problem List: (1) Alcohol abuse ICD Code: F10.10 - Alcohol abuse Status: Acute (2) Falls frequently ICD Code: R29.6 - Repeated falls (3) COPD exacerbation ICD Code: J44.1 - Chronic obstructive pulmonary disease with (acute) exacerbation Status: Acute (4) Hyponatremia ICD Code: E87.1 - Hypo-osmolality and hyponatremia Status: Acute (5) COPD (chronic obstructive pulmonary disease) ICD Code: J44.9 - Chronic obstructive pulmonary disease Status: Acute (6) Alcohol withdrawal ICD Code: F10.239 - Alcohol dependence with withdrawal, unspecified Status: Acute Assessment and Plan 57-year-old male admitted secondary to hyponatremia, COPD exacerbation, and delirium tremens. COPD exacerbation Continue oxygen support as needed Continue nebulized treatments as needed Rapid improvement suggests component of pulmonary edema may have been present Steroids discontinued Hyponatremia Improving slowly Continue IV hydration with normal saline Follow sodium levels Etiology suspected to be related to alcohol abuse Alcohol abuse Continue Librium CIWA protocol Continue thiamine Continue folic acid Continue multivitamin Monitor for seizure activity Recurrent falls Generalized weakness Likely related to alcohol abuse Continue physical therapy DVT prophylaxis Fall risk, avoid blood thinners for now SCDs Agnel Ochoa MD Nov 10, 2017 19:27
[2017-11-10 20:52] VITALS: BP 126/89; PULSE 80; RESP 18; TEMP 98.4; O2SAT 94
[2017-11-10] MEDS: GABAPENTIN 300 MG CAP PO SCH (20:59)
[2017-11-10] MEDS: LORazepam 2 MG/ML VIAL IV PUSH PRN ×2 (22:58→23:57)
[2017-11-11] VITALS (17 sets, daily range): BP systolic 91–129; BP diastolic 60–87; PULSE 110–181; RESP 14–22; TEMP 96.8–97.9; O2SAT 95–98
[2017-11-11] MEDS ORDERED: NICOTINE 21 MG/24 HR PATCH T-DERMAL ONE (00:30)
[2017-11-11] MEDS: LORazepam 2 MG/ML VIAL IV PUSH PRN ×9 (00:31→23:09)
[2017-11-11] MEDS: HALOPERIDOL LACTATE 5 MG/ML AMP IM PRN ×5 (01:56→22:05)
[2017-11-11] MEDS ORDERED: DILTIAZEM HCL 25 MG/5 ML VIAL IV PUSH ONE (03:45)
[2017-11-11] MEDS: DILTIAZEM INJ 125 MG in SODIUM CHLORIDE 0.9% INJ 100 ML IV PRN ×2 (03:50→22:06)
[2017-11-11] MEDS: SODIUM CHLOR 0.9% 1000 ML INJ 1,000 ML IV SCH (03:57)
[2017-11-11] MEDS: RESP: ALBUTEROL 2.5 MG/IPRATROPIUM 0.5 MG NEB (SCH) NEB ×3 (07:47→19:19)
[2017-11-11] MEDS: MULTIVITAMIN TAB PO SCH (08:44)
[2017-11-11] MEDS: SODIUM CHLORIDE 0.9% FLUSH 10 ML FLUSH IV FLUSH SCH ×2 (08:44→21:00)
[2017-11-11] MEDS: PANTOPRAZOLE SOD 40 MG DELAYED RELEASE TAB PO SCH (08:44)
[2017-11-11] MEDS: THIAMINE HCL 100 MG TAB PO SCH (08:44)
[2017-11-11] MEDS: FOLIC ACID 1 MG TAB PO SCH (08:44)
[2017-11-11] MEDS: NICOTINE 21 MG/24 HR PATCH T-DERMAL SCH (08:45)
[2017-11-11] MEDS: REMOVE OLD PATCH T-DERMAL SCH (09:00)
[2017-11-11 09:01] LABS: CALCIUM 8.5 MG/DL (8.5-10.1)
[2017-11-11 09:02] LABS: BICARBONATE 27.2 MEQ/L (21.0-32.0)
[2017-11-11 09:05] LABS: CREATININE 0.72 MG/DL (0.60-1.30)
[2017-11-11] MEDS: METHOCARBAMOL 500 MG TAB PO PRN ×2 (09:12→12:56)
[2017-11-11] MEDS ORDERED: POTASSIUM CHLORIDE 20 MEQ PWD PACKET PO ONE (11:00)
[2017-11-11] MEDS: chlordiazePOXIDE 25 MG CAP PO SCH ×2 (12:55→17:47)
[2017-11-11] MEDS: ACETAMINOPHEN/HYDROcodone 325 MG/7.5 MG TAB PO PRN ×2 (14:10→20:33)
--- NOTE | 2017-11-11 16:48 | HHI.PR ---
Subjective Remarks Delirium tremens symptoms have worsened. Patient is now disoriented and fully hallucinating. Overnight he became disruptive her care and to be restrained and sent to the intensive care unit. Adjustments in his treatments have been made and patient is relatively sedated when seen. History cannot be obtained from the patient. The situation was discussed with his . Objective Vital Signs Date Time Temp Pulse Resp B/P (MAP) Pulse Ox O2 Delivery O2 Flow Rate FiO2 11/11/17 16:00 97.7 148 21 109/75 (86) 96 11/11/17 15:00 123 11/11/17 12:00 97.2 126 18 91/60 (70) 97 11/11/17 08:00 97.9 118 22 127/87 (100) 98 11/11/17 07:47 98 Nasal Cannula 2.00 11/11/17 07:00 115 11/11/17 06:00 110 16 107/74 (85) 98 11/11/17 05:00 122 16 96/65 (75) 98 11/11/17 04:16 118 14 111/66 (81) 97 11/11/17 04:00 146 11/11/17 03:59 97.8 146 16 102/72 (82) 95 11/11/17 03:50 181 116/86 11/11/17 03:10 181 11/11/17 02:50 95 Nasal Cannula 3.00 11/11/17 00:09 96.8 118 16 129/81 (97) 98 11/10/17 20:52 98.4 80 18 126/89 (101) 94 11/10/17 17:53 18 I/O 11/10/17 11/10/17 11/10/17 11/11/17 11/11/17 11/11/17 07:00 15:00 23:00 07:00 15:00 23:00 Intake Total 1900 ml 1040 ml 1100 ml 0 ml 397 ml Output Total 300 ml 800 ml Balance 1900 ml 1040 ml 800 ml -800 ml 397 ml Intake Oral 600 ml 240 ml 300 ml 0 ml IV Total 1300 ml 800 ml 800 ml 397 ml Output Urine Total 300 ml 800 ml # Voids 8 1 2 # Bowel Movements 0 1 0 Result Diagram: 11/10/17 0600 11/11/17 0845 Objective Remarks GENERAL: NAD, A&Ox0 HEAD: Normocephalic. NECK: Supple, trachea midline. No lymphadenopathy. EYES: No scleral icterus. No injection or drainage. CARDIOVASCULAR: Regular rate and rhythm without murmurs, gallops, or rubs. RESPIRATORY: Breath sounds equal bilaterally. No accessory muscle use. GASTROINTESTINAL: Abdomen soft, non-tender, nondistended. MUSCULOSKELETAL: No cyanosis, or edema. SKIN: Warm and dry. NEURO: No focal neurological deficitis. A/P Problem List: (1) Alcohol abuse ICD Code: F10.10 - Alcohol abuse Status: Acute (2) Falls frequently ICD Code: R29.6 - Repeated falls (3) COPD exacerbation ICD Code: J44.1 - Chronic obstructive pulmonary disease with (acute) exacerbation Status: Acute (4) Hyponatremia ICD Code: E87.1 - Hypo-osmolality and hyponatremia Status: Acute (5) COPD (chronic obstructive pulmonary disease) ICD Code: J44.9 - Chronic obstructive pulmonary disease Status: Acute (6) Alcohol withdrawal ICD Code: F10.239 - Alcohol dependence with withdrawal, unspecified Status: Acute Assessment and Plan 57-year-old male admitted secondary to hyponatremia, COPD exacerbation, and delirium tremens. Labs reviewed. Potassium level is low this morning. Sodium level has corrected. Continue to monitor labs. Labs ordered for further monitoring. Discontinue IV fluids. Librium increased to 25 mg by mouth 3 times a day scheduled. Continue CIWA protocol. Monitor delirium tremens. Monitor for seizures. COPD exacerbation Continue oxygen support as needed Continue nebulized treatments as needed Rapid improvement suggests component of pulmonary edema may have been present Steroids discontinued Hyponatremia Improving slowly Continue IV hydration with normal saline Follow sodium levels Etiology suspected to be related to alcohol abuse Alcohol abuse Continue Librium CIWA protocol Continue thiamine Continue folic acid Continue multivitamin Monitor for seizure activity Recurrent falls Generalized weakness Likely related to alcohol abuse Continue physical therapy DVT prophylaxis Fall risk, avoid blood thinners for now SCDs Angel Ochoa MD Nov 11, 2017 16:48
[2017-11-11] MEDS ORDERED: METOPROLOL TARTRATE 5 MG/5 ML VIAL IV PUSH PRN (18:00)
[2017-11-11] MEDS: GABAPENTIN 300 MG CAP PO SCH (19:50)
--- NOTE | 2017-11-11 23:47 | EKG ---
Date Performed: 11/11/2017 Time Performed: 03:11:27 PTAGE: 57 years EKG: ATRIAL FIBRILLATION WITH RAPID VENTRICULAR RESPONSE VOLTAGE CRITERIA FOR LVH NONSPECIFIC ST & T-WAVE ABNORMALITY ABNORMAL ECG INTERPRETATION BASED ON A DEFAULT AGE OF 40 YEARS PREVIOUS TRACING : 11/09/2017 08.10 Compared to prior tracing, now in AFib with RVR DOCTOR: Riki Arora Interpretating Date/Time 11/11/2017 23:47:00
[2017-11-12] VITALS (33 sets, daily range): BP systolic 69–141; BP diastolic 47–78; PULSE 100–132; RESP 14–27; TEMP 97–98.5; O2SAT 95–99
[2017-11-12 07:14] LABS: AUTOMATED NEUTROPHIL # 3.8 TH/MM3 (1.8-7.7); BASOPHIL % 0.7 % (0.0-2.0); EOSINOPHIL % 0.7 % (0.0-4.0); HEMATOCRIT 37.1 % (39.0-51.0); HEMOGLOBIN 12.5 GM/DL (13.0-17.0); LYMPHOCYTE # 1.3 TH/MM3 (1.0-4.8); MEAN CELL VOLUME 107.3 FL (80.0-100.0); MEAN CORPUSCULAR HEMOGLOBIN 36.2 PG (27.0-34.0); MEAN CORPUSCULAR HGB CONC 33.8 % (32.0-36.0); MEAN PLATELET VOLUME 8.2 FL (7.0-11.0); MONO % 7.4 % (0.0-8.0); MONOCYTE # 0.4 TH/MM3 (0-0.9); NEUT % 67.2 % (16.0-70.0); PLATELET COUNT 67 TH/MM3 (150-450); RED BLOOD COUNT 3.45 MIL/MM3 (4.50-5.90); RED CELL DISTRIBUTION WIDTH 14.9 % (11.6-17.2); WHITE BLOOD COUNT 5.5 TH/MM3 (4.0-11.0)
[2017-11-12 07:19] LABS: CHLORIDE 101 MEQ/L (98-107); SODIUM (NA) 140 MEQ/L (136-145)
[2017-11-12 07:22] LABS: CALCIUM 8.5 MG/DL (8.5-10.1)
[2017-11-12 07:23] LABS: ALBUMIN 2.7 GM/DL (3.4-5.0); BICARBONATE 31.4 MEQ/L (21.0-32.0); BLOOD UREA NITROGEN 5 MG/DL (7-18); GLUCOSE,RANDOM 83 MG/DL (74-106)
[2017-11-12] MEDS: RESP: ALBUTEROL 2.5 MG/IPRATROPIUM 0.5 MG NEB (SCH) NEB ×3 (07:23→20:49)
[2017-11-12 07:25] LABS: ALT (GPT) 93 U/L (12-78)
[2017-11-12 07:26] LABS: AST (GOT) 68 U/L (15-37); CREATININE 0.47 MG/DL (0.60-1.30); GLOMERULAR FILTRATION RATE 185 ML/MIN (>89)
[2017-11-12 07:27] LABS: TOTAL BILIRUBIN ADULT 0.5 MG/DL (0.2-1.0)
[2017-11-12 07:29] LABS: ALKALINE PHOSPHATASE 91 U/L (45-117)
[2017-11-12] MEDS: DILTIAZEM INJ 125 MG in SODIUM CHLORIDE 0.9% INJ 100 ML IV PRN (08:52)
[2017-11-12] MEDS ORDERED: POTASSIUM CHLORIDE 20 MEQ PWD PACKET PO ONE (09:00)
[2017-11-12] MEDS: REMOVE OLD PATCH T-DERMAL SCH (09:00)
[2017-11-12] MEDS: chlordiazePOXIDE 25 MG CAP PO SCH ×4 (09:00→21:54)
[2017-11-12] MEDS: SODIUM CHLORIDE 0.9% FLUSH 10 ML FLUSH IV FLUSH SCH ×2 (09:00→21:26)
--- NOTE | 2017-11-12 10:43 | HHI.PR ---
Subjective Remarks More sedated with increase in benzodiazepines. Not oriented this morning. No fevers. Objective Vital Signs Date Time Temp Pulse Resp B/P (MAP) Pulse Ox O2 Delivery O2 Flow Rate FiO2 11/12/17 08:52 104 131/75 11/12/17 08:00 98.5 124 131/75 (93) 96 11/12/17 07:24 97 Nasal Cannula 2.00 11/12/17 07:00 110 11/12/17 04:00 97.0 102 15 112/69 (83) 98 11/12/17 00:00 97.9 119 18 110/71 (84) 98 11/11/17 23:00 112 11/11/17 22:06 119 140/86 11/11/17 20:00 97.9 119 18 121/65 (83) 98 11/11/17 20:00 137 11/11/17 19:18 96 Nasal Cannula 2.00 11/11/17 16:00 97.7 148 21 109/75 (86) 96 11/11/17 15:00 123 11/11/17 12:00 97.2 126 18 91/60 (70) 97 I/O 11/11/17 11/11/17 11/11/17 11/12/17 11/12/17 11/12/17 07:00 15:00 23:00 07:00 15:00 23:00 Intake Total 0 ml 397 ml 605 ml 200 ml Output Total 800 ml 700 ml 250 ml Balance -800 ml 397 ml -95 ml -50 ml Intake Oral 0 ml 480 ml 200 ml IV Total 397 ml 125 ml Output Urine Total 800 ml 700 ml 250 ml # Voids 2 # Bowel Movements 0 0 0 Result Diagram: 11/12/17 0550 11/12/17 0550 Objective Remarks GENERAL: NAD, A&Ox0 HEAD: Normocephalic. NECK: Supple, trachea midline. No lymphadenopathy. EYES: No scleral icterus. No injection or drainage. CARDIOVASCULAR: Regular rate and rhythm without murmurs, gallops, or rubs. RESPIRATORY: Breath sounds equal bilaterally. No accessory muscle use. GASTROINTESTINAL: Abdomen soft, non-tender, nondistended. MUSCULOSKELETAL: No cyanosis, or edema. SKIN: Warm and dry. NEURO: No focal neurological deficitis. A/P Problem List: (1) Alcohol abuse ICD Code: F10.10 - Alcohol abuse Status: Acute (2) Falls frequently ICD Code: R29.6 - Repeated falls (3) COPD exacerbation ICD Code: J44.1 - Chronic obstructive pulmonary disease with (acute) exacerbation Status: Acute (4) Hyponatremia ICD Code: E87.1 - Hypo-osmolality and hyponatremia Status: Acute (5) COPD (chronic obstructive pulmonary disease) ICD Code: J44.9 - Chronic obstructive pulmonary disease Status: Acute (6) Alcohol withdrawal ICD Code: F10.239 - Alcohol dependence with withdrawal, unspecified Status: Acute Assessment and Plan 57-year-old male admitted secondary to hyponatremia, COPD exacerbation, and delirium tremens. Labs reviewed. Potassium level is low this morning, again. Sodium level stable and within normal limits. Continue to monitor labs. Labs ordered for further monitoring. Continue Librium and CIWA protocol. Possible transfer out of ICU tomorrow. COPD exacerbation Continue oxygen support as needed Continue nebulized treatments as needed Rapid improvement suggests component of pulmonary edema may have been present Steroids discontinued Hyponatremia Improving slowly Continue IV hydration with normal saline Follow sodium levels Etiology suspected to be related to alcohol abuse Alcohol abuse Continue Librium CIWA protocol Continue thiamine Continue folic acid Continue multivitamin Monitor for seizure activity Recurrent falls Generalized weakness Likely related to alcohol abuse Continue physical therapy DVT prophylaxis Fall risk, avoid blood thinners for now SCDs Angel Ochoa MD Nov 12, 2017 10:43
[2017-11-12] MEDS: NICOTINE 21 MG/24 HR PATCH T-DERMAL SCH (11:17)
[2017-11-12] MEDS: FOLIC ACID 1 MG TAB PO SCH (11:17)
[2017-11-12] MEDS: MULTIVITAMIN TAB PO SCH (11:17)
[2017-11-12] MEDS: THIAMINE HCL 100 MG TAB PO SCH (11:17)
[2017-11-12] MEDS: PANTOPRAZOLE SOD 40 MG DELAYED RELEASE TAB PO SCH (11:17)
[2017-11-12] MEDS: ACETAMINOPHEN/HYDROcodone 325 MG/7.5 MG TAB PO PRN ×2 (14:38→21:29)
[2017-11-12] MEDS: GABAPENTIN 300 MG CAP PO SCH (20:07)
[2017-11-13] VITALS (20 sets, daily range): BP systolic 104–140; BP diastolic 66–80; PULSE 96–120; RESP 13–66; TEMP 97–98.2; O2SAT 91–100
[2017-11-13] MEDS: DILTIAZEM INJ 125 MG in SODIUM CHLORIDE 0.9% INJ 100 ML IV PRN (02:27)
[2017-11-13] MEDS: ACETAMINOPHEN/HYDROcodone 325 MG/7.5 MG TAB PO PRN ×4 (03:30→23:26)
[2017-11-13 05:28] LABS: AUTOMATED NEUTROPHIL # 3.3 TH/MM3 (1.8-7.7); BASOPHIL % 0.3 % (0.0-2.0); EOSINOPHIL # 0.1 TH/MM3 (0-0.4); EOSINOPHIL % 2.2 % (0.0-4.0); HEMATOCRIT 37.7 % (39.0-51.0); HEMOGLOBIN 12.7 GM/DL (13.0-17.0); LYMPH % 22.8 % (9.0-44.0); LYMPHOCYTE # 1.2 TH/MM3 (1.0-4.8); MEAN CELL VOLUME 107.9 FL (80.0-100.0); MEAN CORPUSCULAR HEMOGLOBIN 36.3 PG (27.0-34.0); MEAN CORPUSCULAR HGB CONC 33.7 % (32.0-36.0); MEAN PLATELET VOLUME 7.9 FL (7.0-11.0); MONOCYTE # 0.5 TH/MM3 (0-0.9); NEUT % 65.7 % (16.0-70.0); PLATELET COUNT 80 TH/MM3 (150-450); RED BLOOD COUNT 3.49 MIL/MM3 (4.50-5.90); WHITE BLOOD COUNT 5.2 TH/MM3 (4.0-11.0)
[2017-11-13 05:37] LABS: CHLORIDE 98 MEQ/L (98-107); SODIUM (NA) 136 MEQ/L (136-145)
[2017-11-13 05:43] LABS: ALBUMIN 2.6 GM/DL (3.4-5.0); BICARBONATE 31.2 MEQ/L (21.0-32.0); BLOOD UREA NITROGEN 8 MG/DL (7-18); CALCIUM 8.3 MG/DL (8.5-10.1); GLUCOSE,RANDOM 101 MG/DL (74-106)
[2017-11-13 05:46] LABS: ALT (GPT) 119 U/L (12-78); AST (GOT) 74 U/L (15-37); CREATININE 0.42 MG/DL (0.60-1.30); GLOMERULAR FILTRATION RATE 210 ML/MIN (>89)
[2017-11-13 05:48] LABS: TOTAL BILIRUBIN ADULT 0.6 MG/DL (0.2-1.0); TOTAL PROTEIN 5.9 GM/DL (6.4-8.2)
[2017-11-13 05:49] LABS: ALKALINE PHOSPHATASE 96 U/L (45-117)
[2017-11-13] MEDS: RESP: ALBUTEROL 2.5 MG/IPRATROPIUM 0.5 MG NEB (SCH) NEB ×2 (07:36→13:54)
[2017-11-13] MEDS ORDERED: chlordiazePOXIDE 25 MG CAP PO ONE (08:30)
[2017-11-13] MEDS: NICOTINE 21 MG/24 HR PATCH T-DERMAL SCH (08:47)
[2017-11-13] MEDS: MULTIVITAMIN TAB PO SCH (08:48)
[2017-11-13] MEDS: THIAMINE HCL 100 MG TAB PO SCH (08:48)
[2017-11-13] MEDS: REMOVE OLD PATCH T-DERMAL SCH (08:48)
[2017-11-13] MEDS: SODIUM CHLORIDE 0.9% FLUSH 10 ML FLUSH IV FLUSH SCH ×2 (08:48→21:44)
[2017-11-13] MEDS: FOLIC ACID 1 MG TAB PO SCH (08:48)
[2017-11-13] MEDS: PANTOPRAZOLE SOD 40 MG DELAYED RELEASE TAB PO SCH (08:48)
[2017-11-13] MEDS ORDERED: POTASSIUM CHLORIDE 20 MEQ PWD PACKET PO ONE (12:00)
--- NOTE | 2017-11-13 13:45 | HHI.PR ---
Subjective Remarks Delirium has improved. Hallucinations have decreased. Patient is now alert and oriented and cooperating. Objective Vital Signs Date Time Temp Pulse Resp B/P (MAP) Pulse Ox O2 Delivery O2 Flow Rate FiO2 11/13/17 13:00 104 14 114/71 (85) 93 11/13/17 12:08 97.9 120 24 117/71 (86) 92 11/13/17 12:00 100 11/13/17 11:00 112 15 124/73 (90) 91 11/13/17 10:00 112 18 119/69 (86) 93 11/13/17 10:00 112 11/13/17 09:00 112 32 133/74 (93) 92 11/13/17 08:01 98.1 112 22 140/80 (100) 96 11/13/17 08:00 97 11/13/17 08:00 98 Nasal Cannula 2.00 11/13/17 07:38 100 Nasal Cannula 3.00 11/13/17 07:00 96 13 122/74 (90) 100 11/13/17 04:00 97.6 106 20 105/77 (86) 99 11/13/17 03:00 98 24 104/72 (83) 100 11/13/17 02:27 116 109/69 11/13/17 02:00 102 20 109/69 (82) 100 11/13/17 01:00 106 22 105/66 (79) 99 11/13/17 00:00 97.0 104 22 122/72 (89) 98 11/12/17 23:07 126 11/12/17 23:07 126 23 136/78 (97) 97 11/12/17 22:47 128 111/69 11/12/17 22:00 128 23 111/69 (83) 98 11/12/17 21:02 126 23 113/76 (88) 98 11/12/17 20:49 97 Nasal Cannula 1.00 11/12/17 20:00 97.5 118 20 105/64 (78) 98 11/12/17 19:30 124 21 113/68 (83) 95 11/12/17 19:15 116 22 112/66 (81) 97 11/12/17 19:00 128 20 141/73 (95) 98 11/12/17 16:45 114 18 109/69 (82) 98 11/12/17 16:30 110 18 102/73 (83) 98 11/12/17 16:15 98.5 114 18 107/74 (85) 98 11/12/17 16:00 106 11/12/17 16:00 104 14 96/65 (75) 98 11/12/17 15:45 108 17 103/63 (76) 98 11/12/17 15:30 112 18 106/70 (82) 98 11/12/17 15:16 118 21 111/74 (86) 97 11/12/17 14:33 132 27 140/73 (95) 96 11/12/17 14:16 108 22 95/52 (66) 99 11/12/17 14:01 106 22 93/57 (69) 99 11/12/17 13:46 106 23 118/71 (87) 98 11/12/17 13:42 106 24 69/47 (54) 97 I/O 11/12/17 11/12/17 11/12/17 11/13/17 11/13/17 11/13/17 07:00 15:00 23:00 07:00 15:00 23:00 Intake Total 200 ml 181 ml 960 ml Output Total 250 ml 250 ml 700 ml Balance -50 ml 181 ml -250 ml 260 ml Intake Oral 200 ml 800 ml IV Total 181 ml 160 ml Output Urine Total 250 ml 250 ml 700 ml # Bowel Movements 0 0 Result Diagram: 11/13/1742911/13/17429 Objective Remarks GENERAL: NAD, A&Ox3 HEAD: Normocephalic. NECK: Supple, trachea midline. No lymphadenopathy. EYES: No scleral icterus. No injection or drainage. CARDIOVASCULAR: Regular rate and rhythm without murmurs, gallops, or rubs. RESPIRATORY: Breath sounds equal bilaterally. No accessory muscle use. GASTROINTESTINAL: Abdomen soft, non-tender, nondistended. MUSCULOSKELETAL: No cyanosis, or edema. SKIN: Warm and dry. NEURO: No focal neurological deficitis. A/P Problem List: (1) Alcohol abuse ICD Code: F10.10 - Alcohol abuse Status: Acute (2) Falls frequently ICD Code: R29.6 - Repeated falls (3) COPD exacerbation ICD Code: J44.1 - Chronic obstructive pulmonary disease with (acute) exacerbation Status: Acute (4) Hyponatremia ICD Code: E87.1 - Hypo-osmolality and hyponatremia Status: Acute (5) COPD (chronic obstructive pulmonary disease) ICD Code: J44.9 - Chronic obstructive pulmonary disease Status: Acute (6) Alcohol withdrawal ICD Code: F10.239 - Alcohol dependence with withdrawal, unspecified Status: Acute Assessment and Plan 57-year-old male admitted secondary to hyponatremia, COPD exacerbation, and delirium tremens. Delirium tremens improving. Patient stable for transfer out of ICU. We'll continue to wean benzodiazepines as tolerated. Continue physical therapy. Continue monitoring on telemetry. Tachycardia in part is secondary to delirium tremens. Labs reviewed. Hyponatremia resolved. Hypokalemia is present. Continue to monitor labs. Labs ordered for further monitoring. Continue to treat hypokalemia. COPD exacerbation Continue oxygen support as needed Continue nebulized treatments as needed Rapid improvement suggests component of pulmonary edema may have been present Steroids discontinued Hyponatremia Improving slowly Continue IV hydration with normal saline Follow sodium levels Etiology suspected to be related to alcohol abuse Alcohol abuse Continue Librium CIWA protocol Continue thiamine Continue folic acid Continue multivitamin Monitor for seizure activity Recurrent falls Generalized weakness Likely related to alcohol abuse Continue physical therapy DVT prophylaxis Fall risk, avoid blood thinners for now SCDs Angel Ochoa MD Nov 13, 2017 13:45
[2017-11-13] MEDS ORDERED: METOPROLOL TARTRATE 25 MG TAB PO ONE (14:30)
[2017-11-13] MEDS ORDERED: DILTIAZEM HCL 60 MG TAB PO ONE (14:30)
[2017-11-13] MEDS: SODIUM CHLORIDE 0.9% FLUSH 10 ML FLUSH IV FLUSH PRN (14:42)
[2017-11-13] MEDS: chlordiazePOXIDE 25 MG CAP PO SCH ×2 (14:42→21:43)
[2017-11-13] MEDS: DILTIAZEM HCL 60 MG TAB PO SCH ×2 (17:39→23:27)
[2017-11-13] MEDS: GABAPENTIN 300 MG CAP PO SCH (21:43)
[2017-11-13] MEDS: METOPROLOL TARTRATE 25 MG TAB PO SCH (21:44)
[2017-11-14] VITALS (15 sets, daily range): BP systolic 98–131; BP diastolic 73–90; PULSE 93–133; RESP 14–27; TEMP 97.5–98.4; O2SAT 93–95
[2017-11-14 05:15] LABS: BASOPHIL % 0.5 % (0.0-2.0); EOSINOPHIL # 0.3 TH/MM3 (0-0.4); EOSINOPHIL % 4.5 % (0.0-4.0); HEMATOCRIT 37.7 % (39.0-51.0); LYMPH % 26.2 % (9.0-44.0); LYMPHOCYTE # 1.8 TH/MM3 (1.0-4.8); MEAN CELL VOLUME 106.7 FL (80.0-100.0); MEAN CORPUSCULAR HEMOGLOBIN 36.7 PG (27.0-34.0); MEAN CORPUSCULAR HGB CONC 34.4 % (32.0-36.0); MEAN PLATELET VOLUME 8.2 FL (7.0-11.0); MONO % 12.7 % (0.0-8.0); MONOCYTE # 0.9 TH/MM3 (0-0.9); NEUT % 56.1 % (16.0-70.0); PLATELET COUNT 124 TH/MM3 (150-450); RED BLOOD COUNT 3.54 MIL/MM3 (4.50-5.90); RED CELL DISTRIBUTION WIDTH 14.9 % (11.6-17.2)
[2017-11-14 05:22] LABS: CHLORIDE 99 MEQ/L (98-107); SODIUM (NA) 136 MEQ/L (136-145)
[2017-11-14 05:25] LABS: CALCIUM 8.7 MG/DL (8.5-10.1)
[2017-11-14] MEDS: chlordiazePOXIDE 25 MG CAP PO SCH ×2 (05:25→13:37)
[2017-11-14] MEDS: DILTIAZEM HCL 60 MG TAB PO SCH (05:25)
[2017-11-14 05:26] LABS: ALBUMIN 2.8 GM/DL (3.4-5.0); BICARBONATE 31.8 MEQ/L (21.0-32.0); BLOOD UREA NITROGEN 8 MG/DL (7-18); GLUCOSE,RANDOM 90 MG/DL (74-106)
[2017-11-14 05:29] LABS: ALT (GPT) 120 U/L (12-78); AST (GOT) 57 U/L (15-37); GLOMERULAR FILTRATION RATE 172 ML/MIN (>89)
[2017-11-14 05:30] LABS: TOTAL BILIRUBIN ADULT 0.3 MG/DL (0.2-1.0); TOTAL PROTEIN 6.4 GM/DL (6.4-8.2)
[2017-11-14 05:32] LABS: ALKALINE PHOSPHATASE 108 U/L (45-117)
[2017-11-14] MEDS: ACETAMINOPHEN/HYDROcodone 325 MG/7.5 MG TAB PO PRN ×3 (06:27→20:06)
[2017-11-14] MEDS: RESP: ALBUTEROL 2.5 MG/IPRATROPIUM 0.5 MG NEB (PRN) NEB (07:31)
[2017-11-14] MEDS: THIAMINE HCL 100 MG TAB PO SCH (08:41)
[2017-11-14] MEDS: METOPROLOL TARTRATE 25 MG TAB PO SCH ×2 (08:41→20:06)
[2017-11-14] MEDS: FOLIC ACID 1 MG TAB PO SCH (08:41)
[2017-11-14] MEDS: MULTIVITAMIN TAB PO SCH (08:41)
[2017-11-14] MEDS: PANTOPRAZOLE SOD 40 MG DELAYED RELEASE TAB PO SCH (08:41)
[2017-11-14] MEDS: NICOTINE 21 MG/24 HR PATCH T-DERMAL SCH (08:42)
[2017-11-14] MEDS: SODIUM CHLORIDE 0.9% FLUSH 10 ML FLUSH IV FLUSH SCH ×2 (08:42→19:34)
[2017-11-14] MEDS: REMOVE OLD PATCH T-DERMAL SCH (08:42)
[2017-11-14] MEDS: DILTIAZEM-CD 180 MG CAP ER PO SCH (10:15)
--- NOTE | 2017-11-14 14:49 | HHI.PR ---
Subjective Remarks Patient feels his breathing is getting a little worse. He thought the steroids were helpful previously. No hallucinations. Patient is cooperative at this point. Objective Vital Signs Date Time Temp Pulse Resp B/P (MAP) Pulse Ox O2 Delivery O2 Flow Rate FiO2 11/14/17 12:00 96 11/14/17 12:00 97.5 108 20 111/78 (89) 95 11/14/17 10:00 96 11/14/17 09:00 122 11/14/17 08:41 97.7 116 21 109/80 (90) 11/14/17 08:15 98 Room Air 11/14/17 08:00 106 11/14/17 07:32 93 21 11/14/17 07:00 112 11/14/17 04:00 106 11/14/17 04:00 97.5 96 27 98/73 (81) 95 11/14/17 00:00 93 11/14/17 00:00 98.4 93 23 115/74 (88) 95 11/13/17 22:35 96 21 11/13/17 20:15 97.8 98 23 106/77 (87) 97 11/13/17 20:00 96 Room Air 11/13/17 20:00 108 11/13/17 19:31 98 24 118/76 (90) 96 11/13/17 16:00 98.2 98 25 115/72 (86) 11/13/17 16:00 98 I/O 11/13/17 11/13/17 11/13/17 11/14/17 11/14/17 11/14/17 07:00 15:00 23:00 07:00 15:00 23:00 Intake Total 960 ml 65 ml 1500 ml 800 ml Output Total 700 ml 2000 ml Balance 260 ml 65 ml 1500 ml -1200 ml Intake Oral 800 ml 1500 ml 800 ml IV Total 160 ml 65 ml Output Urine Total 700 ml 2000 ml # Voids 8 # Bowel Movements 0 1 1 Result Diagram: 11/14/1741111/14/17411 Objective Remarks GENERAL: NAD, A&Ox3 HEAD: Normocephalic. NECK: Supple, trachea midline. No lymphadenopathy. EYES: No scleral icterus. No injection or drainage. CARDIOVASCULAR: Regular rate and rhythm without murmurs, gallops, or rubs. RESPIRATORY: Breath sounds equal bilaterally. No accessory muscle use. GASTROINTESTINAL: Abdomen soft, non-tender, nondistended. MUSCULOSKELETAL: No cyanosis, or edema. SKIN: Warm and dry. NEURO: No focal neurological deficitis. A/P Problem List: (1) Alcohol abuse ICD Code: F10.10 - Alcohol abuse Status: Acute (2) Falls frequently ICD Code: R29.6 - Repeated falls (3) COPD exacerbation ICD Code: J44.1 - Chronic obstructive pulmonary disease with (acute) exacerbation Status: Acute (4) Hyponatremia ICD Code: E87.1 - Hypo-osmolality and hyponatremia Status: Acute (5) COPD (chronic obstructive pulmonary disease) ICD Code: J44.9 - Chronic obstructive pulmonary disease Status: Acute (6) Alcohol withdrawal ICD Code: F10.239 - Alcohol dependence with withdrawal, unspecified Status: Acute Assessment and Plan 57-year-old male admitted secondary to hyponatremia, COPD exacerbation, and delirium tremens. Continue physical therapy. Delirium tremens is improving. Wean benzodiazepine. COPD exacerbation Continue oxygen support as needed Continue nebulized treatments as needed Rapid improvement suggests component of pulmonary edema may have been present Steroids discontinued Hyponatremia Improving slowly Continue IV hydration with normal saline Follow sodium levels Etiology suspected to be related to alcohol abuse Alcohol abuse Continue Librium CIWA protocol Continue thiamine Continue folic acid Continue multivitamin Monitor for seizure activity Recurrent falls Generalized weakness Likely related to alcohol abuse Continue physical therapy DVT prophylaxis Fall risk, avoid blood thinners for now SCDs Angel Ochoa MD Nov 14, 2017 14:49
[2017-11-14] MEDS: methylPREDNISolone SOD SUCC 40 MG/1 ML VIAL IV PUSH SCH (20:06)
[2017-11-14] MEDS: GABAPENTIN 300 MG CAP PO SCH (20:06)
[2017-11-14] MEDS: SODIUM CHLORIDE 0.9% FLUSH 10 ML FLUSH IV FLUSH PRN (20:06)
[2017-11-15] VITALS (17 sets, daily range): BP systolic 90–141; BP diastolic 56–90; PULSE 109–150; RESP 14–26; TEMP 97–97.8; O2SAT 93–96
[2017-11-15] MEDS ORDERED: diphenhydrAMINE HCL 50 MG CAP PO ONE (01:00)
[2017-11-15] MEDS: ACETAMINOPHEN/HYDROcodone 325 MG/7.5 MG TAB PO PRN ×3 (02:24→15:01)
[2017-11-15] MEDS ORDERED: DILTIAZEM HCL 25 MG/5 ML VIAL IV ONE (05:00)
[2017-11-15] MEDS: SODIUM CHLORIDE 0.9% FLUSH 10 ML FLUSH IV FLUSH PRN ×2 (05:18→22:48)
[2017-11-15] MEDS: FOLIC ACID 1 MG TAB PO SCH (08:54)
[2017-11-15] MEDS: MULTIVITAMIN TAB PO SCH (08:54)
[2017-11-15] MEDS: THIAMINE HCL 100 MG TAB PO SCH (08:54)
[2017-11-15] MEDS: PANTOPRAZOLE SOD 40 MG DELAYED RELEASE TAB PO SCH (08:54)
[2017-11-15] MEDS: DILTIAZEM-CD 180 MG CAP ER PO SCH (08:54)
[2017-11-15] MEDS: METOPROLOL TARTRATE 25 MG TAB PO SCH ×2 (08:54→20:11)
[2017-11-15] MEDS: REMOVE OLD PATCH T-DERMAL SCH (08:55)
[2017-11-15] MEDS: NICOTINE 21 MG/24 HR PATCH T-DERMAL SCH (08:55)
[2017-11-15] MEDS: SODIUM CHLORIDE 0.9% FLUSH 10 ML FLUSH IV FLUSH SCH ×2 (08:55→20:10)
[2017-11-15] MEDS: methylPREDNISolone SOD SUCC 40 MG/1 ML VIAL IV PUSH SCH ×2 (08:55→20:10)
[2017-11-15] MEDS ORDERED: DIGOXIN 0.5 MG/2 ML VIAL IV PUSH ONE (10:30)
--- NOTE | 2017-11-15 15:07 | HHI.PR ---
Subjective Remarks A. fib RVR remains. At this point it is unlikely that his degree of delirium tremens is contributory. Improvement has not been seen despite therapy with beta blockers, calcium channel darío, and now digoxin. Objective Vital Signs Date Time Temp Pulse Resp B/P (MAP) Pulse Ox O2 Delivery O2 Flow Rate FiO2 11/15/17 13:00 134 26 11/15/17 12:12 140 25 126/90 (102) 11/15/17 12:00 124 11/15/17 12:00 124 22 11/15/17 09:20 144 20 109/74 (86) 11/15/17 09:00 140 22 11/15/17 08:00 126 11/15/17 08:00 140 18 110/76 (87) 11/15/17 07:00 97 Room Air 11/15/17 05:23 150 11/15/17 04:46 130 16 113/84 (94) 94 11/15/17 04:00 128 11/15/17 03:35 97.8 128 19 112/84 (93) 93 11/15/17 00:48 111 14 95 11/15/17 00:00 109 11/14/17 23:21 97.7 99 14 110/75 (87) 95 11/14/17 20:00 126 11/14/17 20:00 126 18 95 11/14/17 19:33 95 Room Air 11/14/17 19:31 97.6 133 18 114/74 (87) 95 11/14/17 18:00 132 11/14/17 17:00 114 25 131/90 (104) 94 11/14/17 16:00 106 11/14/17 16:00 114 27 115/81 (92) I/O 11/14/17 11/14/17 11/14/17 11/15/17 11/15/17 11/15/17 07:00 15:00 23:00 07:00 15:00 23:00 Intake Total 800 ml 960 ml 1140 ml Output Total 2000 ml 1100 ml 1525 ml Balance -1200 ml -140 ml -385 ml Intake Oral 800 ml 960 ml 1140 ml Output Urine Total 2000 ml 1100 ml 1525 ml # Voids 3 # Bowel Movements 1 1 Result Diagram: 11/14/17 0412 11/14/17411 Objective Remarks GENERAL: NAD, A&Ox3 HEAD: Normocephalic. NECK: Supple, trachea midline. No lymphadenopathy. EYES: No scleral icterus. No injection or drainage. CARDIOVASCULAR: Regular rate and rhythm without murmurs, gallops, or rubs. RESPIRATORY: Breath sounds equal bilaterally. No accessory muscle use. GASTROINTESTINAL: Abdomen soft, non-tender, nondistended. MUSCULOSKELETAL: No cyanosis, or edema. SKIN: Warm and dry. NEURO: No focal neurological deficitis. A/P Problem List: (1) Alcohol abuse ICD Code: F10.10 - Alcohol abuse Status: Acute (2) Falls frequently ICD Code: R29.6 - Repeated falls (3) COPD exacerbation ICD Code: J44.1 - Chronic obstructive pulmonary disease with (acute) exacerbation Status: Acute (4) Hyponatremia ICD Code: E87.1 - Hypo-osmolality and hyponatremia Status: Acute (5) COPD (chronic obstructive pulmonary disease) ICD Code: J44.9 - Chronic obstructive pulmonary disease Status: Acute (6) Alcohol withdrawal ICD Code: F10.239 - Alcohol dependence with withdrawal, unspecified Status: Acute Assessment and Plan 57-year-old male admitted secondary to hyponatremia, COPD exacerbation, and delirium tremens. Delirium tremens is stable despite weaning of benzodiazepine. Continue to wean benzodiazepines as tolerated. A. fib RVR persists. Treatments with beta darío, calcium channel darío, and digoxin are not benefiting. Cardiology consulted. A. fib RVR Continue beta darío Continue calcium channel darío Continue digoxin Follow on telemetry Cardiology consulted COPD exacerbation Continue oxygen support as needed Continue nebulized treatments as needed Rapid improvement suggests component of pulmonary edema may have been present Steroids discontinued Hyponatremia Improving slowly Continue IV hydration with normal saline Follow sodium levels Etiology suspected to be related to alcohol abuse Alcohol abuse Continue Librium CIWA protocol Continue thiamine Continue folic acid Continue multivitamin Monitor for seizure activity Recurrent falls Generalized weakness Likely related to alcohol abuse Continue physical therapy DVT prophylaxis Fall risk, avoid blood thinners for now SCDs Angel Ochoa MD Nov 15, 2017 15:07
[2017-11-15] MEDS: LORazepam 2 MG/ML VIAL IV PUSH PRN ×4 (16:16→22:48)
[2017-11-15] MEDS ORDERED: METOPROLOL TARTRATE 5 MG/5 ML VIAL ONE (17:48)
[2017-11-15] MEDS: HALOPERIDOL LACTATE 5 MG/ML AMP IM PRN ×3 (18:37→21:48)
[2017-11-15] MEDS: GABAPENTIN 300 MG CAP PO SCH (20:10)
--- NOTE | 2017-11-15 20:42 | MB ---
cc: Anaid Tripp MD, Otakar MD DATE OF CONSULT: 11/15/2017 HISTORY OF PRESENT ILLNESS: Mr. Smith is a 57-year-old white male with a history of heavy alcohol abuse. He presented with 1 week shortness of breath which was progressively worse, and cough. He has had bruising, frequent falls, generalized weakness and malnourishment. He was found to be hyponatremic. He was initially in sinus rhythm. He developed alcohol withdrawal. He subsequently went into atrial fibrillation with rapid ventricular response and has been in atrial fibrillation since last Monday. He currently denies any chest pain or shortness of breath. PAST MEDICAL HISTORY: Positive for heavy alcohol abuse, COPD, chronic back pain, history of surgery for inguinal hernia, ankle surgery. MEDICATIONS: At home include albuterol, methocarbamol, hydrochloride/acetaminophen and gabapentin. The patient is currently on digoxin, diltiazem, metoprolol, thiamine, folic acid, gabapentin, multivitamin. ALLERGIES: None. SOCIAL HISTORY: The patient is a smoker. He drinks alcohol heavily. He lives with his girlfriend. FAMILY HISTORY: Negative for heart disease. REVIEW OF SYSTEMS: Otherwise negative. PHYSICAL EXAMINATION: VITAL SIGNS: Blood pressure 112/70, pulse 130 and irregular. HEENT: Negative. 2+ carotid upstrokes, no bruits. LUNGS: A few rhonchi. HEART: Irregularly irregular with no murmur, gallop or rub. ABDOMEN: Soft. No bruits. EXTREMITIES: Without edema. 1 to 2+ distal pulses. NEUROLOGIC: Grossly nonfocal. CARDIOLOGY STUDIES: EKG was reviewed and showed initially normal sinus rhythm with normal axis and intervals. Telemetry now shows atrial fibrillation with rapid ventricular response. LABORATORY DATA: Hemoglobin 13.0, potassium 4.1, creatinine 0.5, AST 57, ALT 120. DIAGNOSES: 1. Atrial fibrillation with rapid ventricular response. 2. Alcohol withdrawal. 3. Frequent falls. 4. Chronic obstructive pulmonary disease exacerbation. 5. Hyponatremia. DISPOSITION: Mr. Smith will be monitored on telemetry. He has atrial fibrillation with rapid ventricular response. He is a very poor candidate for anticoagulation given his heavy drinking, history of frequent falls and elevated liver function tests. The risk of complications from anticoagulation is significantly higher than its benefit. At this time, I recommend anticoagulation with aspirin 325 mg a day only. I recommend to titrate his rate control including beta darío, calcium channel darío and digoxin. His rate should significantly improve once his acute problems are resolved. He is not a candidate for cardioversion since he cannot be anticoagulated, and the risk of stroke would be significantly increased. The patient was strongly encouraged to quit drinking. If he continues to drink, I believe he will do rather poorly regardless of his management. MD BETH Cosby//jacklyn , 07:49 PM , 08:23 PM MARCELA
[2017-11-15 21:03] LABS: CHLORIDE 101 MEQ/L (98-107); SODIUM (NA) 134 MEQ/L (136-145)
[2017-11-15 21:05] LABS: CALCIUM 9.1 MG/DL (8.5-10.1)
[2017-11-15 21:06] LABS: ALBUMIN 3.2 GM/DL (3.4-5.0); BICARBONATE 26.6 MEQ/L (21.0-32.0); BLOOD UREA NITROGEN 12 MG/DL (7-18); GLUCOSE,RANDOM 97 MG/DL (74-106); MAGNESIUM 1.9 MG/DL (1.5-2.5)
[2017-11-15 21:09] LABS: ALT (GPT) 121 U/L (12-78); AST (GOT) 47 U/L (15-37); CREATININE 0.63 MG/DL (0.60-1.30); GLOMERULAR FILTRATION RATE 132 ML/MIN (>89)
[2017-11-15 21:11] LABS: TOTAL BILIRUBIN ADULT 0.2 MG/DL (0.2-1.0); TOTAL PROTEIN 7.5 GM/DL (6.4-8.2)
[2017-11-15 21:12] LABS: ALKALINE PHOSPHATASE 122 U/L (45-117)
[2017-11-15 21:17] LABS: AUTOMATED NEUTROPHIL # 8.6 TH/MM3 (1.8-7.7); BASOPHIL % 0.3 % (0.0-2.0); EOSINOPHIL % 0.2 % (0.0-4.0); HEMATOCRIT 42.7 % (39.0-51.0); HEMOGLOBIN 14.3 GM/DL (13.0-17.0); LYMPH % 11.3 % (9.0-44.0); LYMPHOCYTE # 1.3 TH/MM3 (1.0-4.8); MEAN CELL VOLUME 106.7 FL (80.0-100.0); MEAN CORPUSCULAR HEMOGLOBIN 35.9 PG (27.0-34.0); MEAN CORPUSCULAR HGB CONC 33.6 % (32.0-36.0); MEAN PLATELET VOLUME 7.3 FL (7.0-11.0); MONO % 14.7 % (0.0-8.0); MONOCYTE # 1.7 TH/MM3 (0-0.9); NEUT % 73.5 % (16.0-70.0); PLATELET COUNT 272 TH/MM3 (150-450); WHITE BLOOD COUNT 11.6 TH/MM3 (4.0-11.0)
[2017-11-15] MEDS ORDERED: DEXMEDETOMIDINE INJ 200 MCG in SODIUM CHLORIDE 0.9% INJ 50 ML IV PRN (23:00)
[2017-11-15] MEDS ORDERED: ZIPRASIDONE MESYLATE 20 MG VIAL IM ONE (23:00)
[2017-11-16] VITALS (32 sets, daily range): BP systolic 78–137; BP diastolic 53–98; PULSE 92–150; RESP 12–32; TEMP 97.5–98; O2SAT 92–98
--- NOTE | 2017-11-16 00:01 | RADRPT ---
EXAM DATE/TIME: 11/15/2017 23:47 [facility] COMPARISON: No previous studies available for comparison. INDICATIONS : Altered mental status. RADIATION DOSE: 60.74 CTDIvol (mGy) MEDICAL HISTORY : Hypertension. SURGICAL HISTORY : None. ENCOUNTER: Initial ACUITY: 1 day PAIN SCALE: Non-responsive LOCATION: cranial TECHNIQUE: Multiple contiguous axial images were obtained of the head. Using automated exposure control and adj ustment of the mA and/or kV according to patient size, radiation dose was kept as low as reasonably a chievable to obtain optimal diagnostic quality images. DICOM format image data is available electro nically for review and comparison. FINDINGS: CEREBRUM: The ventricles are normal for age. No evidence of midline shift, mass lesion, hemorrhage or acute in farction. No extra-axial fluid collections are seen. POSTERIOR FOSSA: The cerebellum and brainstem are intact. The 4th ventricle is midline. The cerebellopontine angle i s unremarkable. EXTRACRANIAL: The visualized portion of the orbits is intact. SKULL: The calvaria is intact. No evidence of skull fracture. CONCLUSION: Normal examination. Heath Griggs Jr., MD on November 15, 2017 at 23:58 Board Certified Radiologist. This report was verified electronically.
[2017-11-16] MEDS: DILTIAZEM HCL 60 MG TAB PO SCH ×5 (07:40→23:54)
[2017-11-16] MEDS: SODIUM CHLORIDE 0.9% FLUSH 10 ML FLUSH IV FLUSH SCH ×2 (07:41→20:33)
[2017-11-16] MEDS: RESP: ALBUTEROL 2.5 MG/IPRATROPIUM 0.5 MG NEB (PRN) NEB ×2 (08:11→13:56)
[2017-11-16] MEDS: REMOVE OLD PATCH T-DERMAL SCH (09:00)
[2017-11-16] MEDS: DIGOXIN 0.5 MG/2 ML VIAL IV PUSH SCH (09:25)
[2017-11-16] MEDS: THIAMINE HCL 100 MG TAB PO SCH (09:26)
[2017-11-16] MEDS: FOLIC ACID 1 MG TAB PO SCH (09:26)
[2017-11-16] MEDS: PANTOPRAZOLE SOD 40 MG DELAYED RELEASE TAB PO SCH (09:26)
[2017-11-16] MEDS: MULTIVITAMIN TAB PO SCH (09:26)
[2017-11-16] MEDS: METOPROLOL TARTRATE 25 MG TAB PO SCH ×2 (09:26→20:32)
[2017-11-16] MEDS: methylPREDNISolone SOD SUCC 40 MG/1 ML VIAL IV PUSH SCH ×2 (09:26→20:33)
[2017-11-16] MEDS: NICOTINE 21 MG/24 HR PATCH T-DERMAL SCH (09:27)
--- NOTE | 2017-11-16 10:01 | HHI.PR ---
Subjective Remarks A. fib RVR remains. Medical management has been recommended by cardiology. She is not a good candidate for anticoagulation due to his alcohol abuse, per cardiology. This means she is not a candidate for cardioversion or ablation. Overnight withdrawals have returned. Objective Vital Signs Date Time Temp Pulse Resp B/P (MAP) Pulse Ox O2 Delivery O2 Flow Rate FiO2 11/16/17 08:12 96 21 11/16/17 08:00 97.5 110 16 121/71 (88) 96 11/16/17 07:00 96 Room Air 11/16/17 06:34 116 19 100/69 (79) 92 11/16/17 06:30 114 20 78/53 (61) 11/16/17 06:15 118 20 81/66 (71) 93 11/16/17 06:00 118 20 97/71 (80) 11/16/17 05:45 126 22 84/54 (64) 93 11/16/17 05:30 150 19 98/76 (83) 11/16/17 05:22 140 26 113/81 (92) 92 11/16/17 05:00 144 25 113/81 (92) 93 11/16/17 04:04 98.0 110 18 113/72 (86) 93 11/16/17 04:00 107 11/16/17 03:00 107 20 118/80 (93) 92 11/16/17 02:00 114 27 92 11/16/17 00:00 123 11/16/17 00:00 97.6 123 32 91/67 (75) 92 11/15/17 23:00 138 25 90/56 (67) 11/15/17 21:00 146 21 141/90 (107) 96 11/15/17 20:16 96 Room Air 11/15/17 20:00 150 11/15/17 17:00 97.0 136 18 138/85 (102) 11/15/17 16:01 18 11/15/17 16:00 124 11/15/17 16:00 134 18 11/15/17 13:00 134 26 11/15/17 12:12 140 25 126/90 (102) 11/15/17 12:00 124 11/15/17 12:00 124 22 I/O 11/15/17 11/15/17 11/15/17 11/16/17 11/16/17 3/15/18 07:00 15:00 23:00 07:00 15:00 23:00 Intake Total 1140 ml 400 ml 100 ml Output Total 1525 ml 1300 ml 300 ml Balance -385 ml -900 ml -200 ml Intake Oral 1140 ml 400 ml 100 ml Output Urine Total 1525 ml 1300 ml 300 ml # Voids 3 # Bowel Movements 3 0 Result Diagram: 11/15/17204411/15/172044 Objective Remarks GENERAL: NAD, A&Ox0 HEAD: Normocephalic. NECK: Supple, trachea midline. No lymphadenopathy. EYES: No scleral icterus. No injection or drainage. CARDIOVASCULAR: Regular rate and rhythm without murmurs, gallops, or rubs. RESPIRATORY: Breath sounds equal bilaterally. No accessory muscle use. GASTROINTESTINAL: Abdomen soft, non-tender, nondistended. MUSCULOSKELETAL: No cyanosis, or edema. SKIN: Warm and dry. NEURO: No focal neurological deficitis. A/P Problem List: (1) Alcohol abuse ICD Code: F10.10 - Alcohol abuse Status: Acute (2) Falls frequently ICD Code: R29.6 - Repeated falls (3) COPD exacerbation ICD Code: J44.1 - Chronic obstructive pulmonary disease with (acute) exacerbation Status: Acute (4) Hyponatremia ICD Code: E87.1 - Hypo-osmolality and hyponatremia Status: Acute (5) COPD (chronic obstructive pulmonary disease) ICD Code: J44.9 - Chronic obstructive pulmonary disease Status: Acute (6) Alcohol withdrawal ICD Code: F10.239 - Alcohol dependence with withdrawal, unspecified Status: Acute Assessment and Plan 57-year-old male admitted secondary to hyponatremia, COPD exacerbation, and delirium tremens. Delirium tremens are worse again. Patient is disoriented and had to be restrained overnight. This happens after weaning down Librium. Librium is adjusted again. Continue beta darío, diltiazem, and digoxin to attempt rate control chemically. Per cardiology, patient is not a candidate for any interventions due to his inability to use anticoagulation due to alcoholism. A. fib RVR Continue beta darío Continue calcium channel darío Continue digoxin Follow on telemetry Cardiology consulted COPD exacerbation Continue oxygen support as needed Continue nebulized treatments as needed Rapid improvement suggests component of pulmonary edema may have been present Steroids discontinued Hyponatremia Improving slowly Continue IV hydration with normal saline Follow sodium levels Etiology suspected to be related to alcohol abuse Alcohol abuse Continue Librium CIWA protocol Continue thiamine Continue folic acid Continue multivitamin Monitor for seizure activity Recurrent falls Generalized weakness Likely related to alcohol abuse Continue physical therapy DVT prophylaxis Fall risk, avoid blood thinners for now SCDs Angel Ochoa MD Nov 16, 2017 10:01
[2017-11-16] MEDS: ACETAMINOPHEN/HYDROcodone 325 MG/7.5 MG TAB PO PRN ×2 (12:26→19:15)
[2017-11-16] MEDS: METHOCARBAMOL 500 MG TAB PO PRN ×2 (14:44→20:32)
[2017-11-16] MEDS: GABAPENTIN 300 MG CAP PO SCH (20:32)
[2017-11-17] VITALS (29 sets, daily range): BP systolic 104–146; BP diastolic 65–96; PULSE 94–136; RESP 13–26; TEMP 97.4–98.2; O2SAT 95–97
[2017-11-17] MEDS: ACETAMINOPHEN/HYDROcodone 325 MG/7.5 MG TAB PO PRN ×4 (01:38→20:46)
[2017-11-17 04:44] LABS: BASOPHIL % 0.1 % (0.0-2.0); HEMATOCRIT 38.1 % (39.0-51.0); HEMOGLOBIN 13.1 GM/DL (13.0-17.0); LYMPH % 8.8 % (9.0-44.0); LYMPHOCYTE # 0.6 TH/MM3 (1.0-4.8); MEAN CELL VOLUME 106.8 FL (80.0-100.0); MEAN CORPUSCULAR HEMOGLOBIN 36.7 PG (27.0-34.0); MEAN CORPUSCULAR HGB CONC 34.3 % (32.0-36.0); MEAN PLATELET VOLUME 7.4 FL (7.0-11.0); MONO % 7.2 % (0.0-8.0); MONOCYTE # 0.5 TH/MM3 (0-0.9); NEUT % 83.9 % (16.0-70.0); PLATELET COUNT 249 TH/MM3 (150-450); RED BLOOD COUNT 3.57 MIL/MM3 (4.50-5.90); RED CELL DISTRIBUTION WIDTH 14.7 % (11.6-17.2); WHITE BLOOD COUNT 7.1 TH/MM3 (4.0-11.0)
[2017-11-17 04:49] LABS: CHLORIDE 100 MEQ/L (98-107); SODIUM (NA) 135 MEQ/L (136-145)
[2017-11-17 04:54] LABS: ALBUMIN 2.9 GM/DL (3.4-5.0); CALCIUM 8.6 MG/DL (8.5-10.1)
[2017-11-17 04:55] LABS: BICARBONATE 28.3 MEQ/L (21.0-32.0); BLOOD UREA NITROGEN 14 MG/DL (7-18); GLUCOSE,RANDOM 136 MG/DL (74-106)
[2017-11-17 04:57] LABS: ALT (GPT) 102 U/L (12-78); AST (GOT) 30 U/L (15-37); CREATININE 0.64 MG/DL (0.60-1.30); GLOMERULAR FILTRATION RATE 129 ML/MIN (>89)
[2017-11-17 04:59] LABS: TOTAL BILIRUBIN ADULT 0.3 MG/DL (0.2-1.0); TOTAL PROTEIN 6.5 GM/DL (6.4-8.2)
[2017-11-17 05:00] LABS: ALKALINE PHOSPHATASE 92 U/L (45-117)
[2017-11-17] MEDS: DILTIAZEM HCL 60 MG TAB PO SCH ×4 (05:22→23:34)
[2017-11-17] MEDS: SODIUM CHLORIDE 0.9% FLUSH 10 ML FLUSH IV FLUSH SCH ×2 (07:56→19:35)
[2017-11-17] MEDS: methylPREDNISolone SOD SUCC 40 MG/1 ML VIAL IV PUSH SCH ×2 (07:57→19:35)
[2017-11-17] MEDS: METOPROLOL TARTRATE 25 MG TAB PO SCH ×2 (08:00→19:35)
[2017-11-17] MEDS: THIAMINE HCL 100 MG TAB PO SCH (08:00)
[2017-11-17] MEDS: DIGOXIN 0.5 MG/2 ML VIAL IV PUSH SCH (08:00)
[2017-11-17] MEDS: MULTIVITAMIN TAB PO SCH (08:00)
[2017-11-17] MEDS: PANTOPRAZOLE SOD 40 MG DELAYED RELEASE TAB PO SCH (08:00)
[2017-11-17] MEDS: FOLIC ACID 1 MG TAB PO SCH (08:00)
[2017-11-17] MEDS: REMOVE OLD PATCH T-DERMAL SCH (08:01)
[2017-11-17] MEDS: NICOTINE 21 MG/24 HR PATCH T-DERMAL SCH (08:02)
[2017-11-17] MEDS: RESP: ALBUTEROL 2.5 MG/IPRATROPIUM 0.5 MG NEB (PRN) NEB ×2 (10:13→15:21)
[2017-11-17] MEDS: METHOCARBAMOL 500 MG TAB PO PRN ×2 (16:04→23:38)
--- NOTE | 2017-11-17 17:40 | HHI.PR ---
Subjective Remarks Mental status improved. A. fib RVR persists. No new complaints from patient. Objective Vital Signs Date Time Temp Pulse Resp B/P (MAP) Pulse Ox O2 Delivery O2 Flow Rate FiO2 11/17/17 17:00 136 19 106/77 (87) 11/17/17 16:04 16 11/17/17 16:00 98.0 126 16 133/66 (88) 11/17/17 16:00 128 11/17/17 15:00 114 17 108/67 (81) 11/17/17 14:00 114 19 117/75 (89) 11/17/17 14:00 114 11/17/17 13:00 136 22 11/17/17 12:00 128 11/17/17 12:00 97.8 128 22 131/78 (95) 11/17/17 11:00 122 19 117/76 (90) 11/17/17 10:14 95 21 11/17/17 10:00 108 11/17/17 10:00 125/71 (89) 11/17/17 09:00 98 15 108/80 (89) 11/17/17 08:00 100 11/17/17 08:00 97.4 110 15 146/79 (101) 11/17/17 07:00 96 Room Air 11/17/17 07:00 100 13 131/77 (95) 11/17/17 06:01 112 17 97 11/17/17 06:00 120 25 120/79 (93) 97 11/17/17 05:29 97.6 11/17/17 05:00 106 11/17/17 05:00 106 14 134/96 (109) 11/17/17 04:00 94 14 119/80 (93) 11/17/17 04:00 94 11/17/17 03:00 98 15 104/70 (81) 97 11/17/17 02:00 112 21 113/77 (89) 11/17/17 02:00 112 11/17/17 01:00 98 15 104/72 (83) 11/17/17 00:34 98.2 102 16 106/74 (85) 96 11/17/17 00:00 104 11/16/17 23:02 110 18 127/73 (91) 97 11/16/17 22:00 106 20 116/69 (85) 96 11/16/17 22:00 100 11/16/17 21:00 100 17 102/66 (78) 96 11/16/17 20:50 96 Room Air 11/16/17 20:00 106 11/16/17 20:00 97.5 114 17 96/63 (74) 96 11/16/17 19:00 112 20 103/67 (79) 11/16/17 18:06 108 19 101/67 (78) 98 11/16/17 18:00 112 18 95/64 (74) 98 I/O 11/16/17 11/16/17 11/16/17 11/17/17 11/17/17 11/17/17 07:00 15:00 23:00 07:00 15:00 23:00 Intake Total 100 ml 1320 ml 1440 ml Output Total 300 ml 750 ml 1625 ml Balance -200 ml 570 ml -185 ml Intake Oral 100 ml 1300 ml 1440 ml IV Total 20 ml Output Urine Total 300 ml 750 ml 1625 ml # Bowel Movements 0 1 2 Result Diagram: 11/17/17 0406 11/17/17 0406 Objective Remarks GENERAL: NAD, A&Ox3 HEAD: Normocephalic. NECK: Supple, trachea midline. No lymphadenopathy. EYES: No scleral icterus. No injection or drainage. CARDIOVASCULAR: Regular rate and rhythm without murmurs, gallops, or rubs. RESPIRATORY: Breath sounds equal bilaterally. No accessory muscle use. GASTROINTESTINAL: Abdomen soft, non-tender, nondistended. MUSCULOSKELETAL: No cyanosis, or edema. SKIN: Warm and dry. NEURO: No focal neurological deficitis. A/P Problem List: (1) Alcohol abuse ICD Code: F10.10 - Alcohol abuse Status: Acute (2) Falls frequently ICD Code: R29.6 - Repeated falls (3) COPD exacerbation ICD Code: J44.1 - Chronic obstructive pulmonary disease with (acute) exacerbation Status: Acute (4) Hyponatremia ICD Code: E87.1 - Hypo-osmolality and hyponatremia Status: Acute (5) COPD (chronic obstructive pulmonary disease) ICD Code: J44.9 - Chronic obstructive pulmonary disease Status: Acute (6) Alcohol withdrawal ICD Code: F10.239 - Alcohol dependence with withdrawal, unspecified Status: Acute Assessment and Plan 57-year-old male admitted secondary to hyponatremia, COPD exacerbation, and delirium tremens. Labs reviewed. Continue to monitor potassium levels and replace as needed. Continue to monitor labs. Labs ordered for further monitoring. Continue to monitor on telemetry. Continue monitoring electrolytes. Patient has stabilized on present dose of Librium with CIWA protocol in place. Plan to wean Librium again tomorrow. A. fib RVR Continue beta darío Continue calcium channel darío Continue digoxin Follow on telemetry Cardiology consulted COPD exacerbation Continue oxygen support as needed Continue nebulized treatments as needed Rapid improvement suggests component of pulmonary edema may have been present Steroids discontinued Hyponatremia Improving slowly Continue IV hydration with normal saline Follow sodium levels Etiology suspected to be related to alcohol abuse Alcohol abuse Continue Librium CIWA protocol Continue thiamine Continue folic acid Continue multivitamin Monitor for seizure activity Recurrent falls Generalized weakness Likely related to alcohol abuse Continue physical therapy DVT prophylaxis Fall risk, avoid blood thinners for now SCDs Angel Ochoa MD Nov 17, 2017 17:40
[2017-11-17] MEDS: GABAPENTIN 300 MG CAP PO SCH (19:35)
[2017-11-18] VITALS (27 sets, daily range): BP systolic 94–133; BP diastolic 65–88; PULSE 88–130; RESP 14–27; TEMP 97.5–98.3; O2SAT 97–99
[2017-11-18] MEDS: ACETAMINOPHEN/HYDROcodone 325 MG/7.5 MG TAB PO PRN ×3 (04:17→21:13)
[2017-11-18] MEDS: DILTIAZEM HCL 60 MG TAB PO SCH ×4 (05:16→23:25)
[2017-11-18] MEDS: METHOCARBAMOL 500 MG TAB PO PRN ×2 (05:16→19:24)
[2017-11-18 06:08] LABS: BASOPHIL % 0.2 % (0.0-2.0); HEMATOCRIT 40.3 % (39.0-51.0); HEMOGLOBIN 13.6 GM/DL (13.0-17.0); LYMPH % 6.9 % (9.0-44.0); LYMPHOCYTE # 0.7 TH/MM3 (1.0-4.8); MEAN CELL VOLUME 107.6 FL (80.0-100.0); MEAN CORPUSCULAR HEMOGLOBIN 36.3 PG (27.0-34.0); MEAN CORPUSCULAR HGB CONC 33.7 % (32.0-36.0); MEAN PLATELET VOLUME 7.5 FL (7.0-11.0); MONOCYTE # 0.8 TH/MM3 (0-0.9); NEUT % 84.9 % (16.0-70.0); PLATELET COUNT 344 TH/MM3 (150-450); RED BLOOD COUNT 3.74 MIL/MM3 (4.50-5.90); RED CELL DISTRIBUTION WIDTH 14.5 % (11.6-17.2); WHITE BLOOD COUNT 9.5 TH/MM3 (4.0-11.0)
[2017-11-18 06:20] LABS: CHLORIDE 100 MEQ/L (98-107); SODIUM (NA) 134 MEQ/L (136-145)
[2017-11-18 06:23] LABS: ALBUMIN 3.2 GM/DL (3.4-5.0); BICARBONATE 27.1 MEQ/L (21.0-32.0); CALCIUM 8.8 MG/DL (8.5-10.1); GLUCOSE,RANDOM 113 MG/DL (74-106)
[2017-11-18 06:24] LABS: BLOOD UREA NITROGEN 15 MG/DL (7-18)
[2017-11-18 06:26] LABS: ALT (GPT) 122 U/L (12-78); AST (GOT) 42 U/L (15-37)
[2017-11-18 06:27] LABS: GLOMERULAR FILTRATION RATE 139 ML/MIN (>89)
[2017-11-18 06:28] LABS: TOTAL BILIRUBIN ADULT 0.2 MG/DL (0.2-1.0)
[2017-11-18 06:29] LABS: ALKALINE PHOSPHATASE 91 U/L (45-117)
[2017-11-18] MEDS: METOPROLOL TARTRATE 25 MG TAB PO SCH ×2 (07:38→19:24)
[2017-11-18] MEDS: SODIUM CHLORIDE 0.9% FLUSH 10 ML FLUSH IV FLUSH SCH ×2 (07:38→19:25)
[2017-11-18] MEDS: PANTOPRAZOLE SOD 40 MG DELAYED RELEASE TAB PO SCH (07:39)
[2017-11-18] MEDS: FOLIC ACID 1 MG TAB PO SCH (07:39)
[2017-11-18] MEDS: MULTIVITAMIN TAB PO SCH (07:39)
[2017-11-18] MEDS: THIAMINE HCL 100 MG TAB PO SCH (07:39)
[2017-11-18] MEDS: methylPREDNISolone SOD SUCC 40 MG/1 ML VIAL IV PUSH SCH ×2 (07:39→19:25)
[2017-11-18] MEDS: DIGOXIN 0.5 MG/2 ML VIAL IV PUSH SCH (07:40)
[2017-11-18] MEDS: REMOVE OLD PATCH T-DERMAL SCH (07:40)
[2017-11-18] MEDS: NICOTINE 21 MG/24 HR PATCH T-DERMAL SCH (07:40)
[2017-11-18] MEDS: DIGOXIN 0.125 MG TAB PO SCH (09:00)
--- NOTE | 2017-11-18 11:11 | HHI.PR ---
Subjective Remarks Mental status continues to show stability. Librium will be decreased again today. After Librium decrease last time he had hallucinations and tachycardia and needed to be restrained. Objective Vital Signs Date Time Temp Pulse Resp B/P (MAP) Pulse Ox O2 Delivery O2 Flow Rate FiO2 11/18/17 10:00 106 11/18/17 10:00 106 17 118/75 (89) 11/18/17 09:01 96 19 122/65 (84) 11/18/17 08:04 98.2 104 23 133/80 (97) 99 11/18/17 08:00 109 11/18/17 07:02 108 14 106/80 (89) 11/18/17 07:00 99 Room Air 11/18/17 06:00 116 16 124/85 (98) 11/18/17 06:00 108 11/18/17 05:00 112 16 115/77 (90) 97 11/18/17 04:00 97.5 108 17 122/88 (99) 97 11/18/17 04:00 108 11/18/17 03:00 104 11/18/17 03:00 104 16 113/83 (93) 11/18/17 02:00 92 11/18/17 02:00 92 19 97/69 (78) 11/18/17 01:00 102 18 94/67 (76) 11/18/17 00:00 97.9 116 16 116/73 (87) 97 11/18/17 00:00 116 11/17/17 23:00 108 16 113/74 (87) 97 11/17/17 22:00 104 16 105/70 (82) 11/17/17 22:00 104 11/17/17 21:00 102 18 109/82 (91) 11/17/17 20:10 95 21 11/17/17 20:00 97.8 120 19 121/77 (92) 97 11/17/17 20:00 120 11/17/17 20:00 97 Room Air 11/17/17 19:10 122 16 119/66 (83) 11/17/17 18:00 120 26 135/65 (88) 11/17/17 18:00 120 11/17/17 17:00 136 19 106/77 (87) 11/17/17 16:04 16 11/17/17 16:00 98.0 126 16 133/66 (88) 11/17/17 16:00 128 11/17/17 15:00 114 17 108/67 (81) 11/17/17 14:00 114 19 117/75 (89) 11/17/17 14:00 114 11/17/17 13:00 136 22 11/17/17 12:00 128 11/17/17 12:00 97.8 128 22 131/78 (95) I/O 11/17/17 11/17/17 11/17/17 11/18/17 11/18/17 11/18/17 06:59 14:59 22:59 06:59 14:59 22:59 Intake Total 1440 ml 1250 ml 1200 ml Output Total 1625 ml 800 ml 2200 ml Balance -185 ml 450 ml -1000 ml Intake Oral 1440 ml 1250 ml 1200 ml Output Urine Total 1625 ml 800 ml 2200 ml # Bowel Movements 2 1 1 Result Diagram: 11/18/1733 11/18/1733 Objective Remarks GENERAL: NAD, A&Ox3 HEAD: Normocephalic. NECK: Supple, trachea midline. No lymphadenopathy. EYES: No scleral icterus. No injection or drainage. CARDIOVASCULAR: Regular rate and rhythm without murmurs, gallops, or rubs. RESPIRATORY: Breath sounds equal bilaterally. No accessory muscle use. GASTROINTESTINAL: Abdomen soft, non-tender, nondistended. MUSCULOSKELETAL: No cyanosis, or edema. SKIN: Warm and dry. NEURO: No focal neurological deficitis. A/P Problem List: (1) Alcohol abuse ICD Code: F10.10 - Alcohol abuse Status: Acute (2) Falls frequently ICD Code: R29.6 - Repeated falls (3) COPD exacerbation ICD Code: J44.1 - Chronic obstructive pulmonary disease with (acute) exacerbation Status: Acute (4) Hyponatremia ICD Code: E87.1 - Hypo-osmolality and hyponatremia Status: Acute (5) COPD (chronic obstructive pulmonary disease) ICD Code: J44.9 - Chronic obstructive pulmonary disease Status: Acute (6) Alcohol withdrawal ICD Code: F10.239 - Alcohol dependence with withdrawal, unspecified Status: Acute Assessment and Plan 57-year-old male admitted secondary to hyponatremia, COPD exacerbation, and delirium tremens. Adjust Librium today. Decreased from 10 mg 4 times a day down to 5 mg 4 times a day. Monitor for DTs. Monitor on telemetry. If despite the wean of his Librium he continues to have more stable heart rates, will consider transfer out of ICU. A. fib RVR Continue beta darío Continue calcium channel darío Continue digoxin Follow on telemetry Cardiology consulted COPD exacerbation Continue oxygen support as needed Continue nebulized treatments as needed Rapid improvement suggests component of pulmonary edema may have been present Steroids discontinued Hyponatremia Improving slowly Continue IV hydration with normal saline Follow sodium levels Etiology suspected to be related to alcohol abuse Alcohol abuse Continue Librium CIWA protocol Continue thiamine Continue folic acid Continue multivitamin Monitor for seizure activity Recurrent falls Generalized weakness Likely related to alcohol abuse Continue physical therapy DVT prophylaxis Fall risk, avoid blood thinners for now SCDs Angel Ochoa MD Nov 18, 2017 11:11
[2017-11-18] MEDS: GABAPENTIN 300 MG CAP PO SCH (19:24)
[2017-11-19] VITALS (15 sets, daily range): BP systolic 100–150; BP diastolic 62–90; PULSE 90–108; RESP 14–23; TEMP 97.3–98.4; O2SAT 95–98
[2017-11-19] MEDS: ACETAMINOPHEN/HYDROcodone 325 MG/7.5 MG TAB PO PRN ×3 (05:07→17:46)
[2017-11-19] MEDS: DILTIAZEM HCL 60 MG TAB PO SCH ×3 (05:07→17:46)
[2017-11-19] MEDS: NICOTINE 21 MG/24 HR PATCH T-DERMAL SCH (08:23)
[2017-11-19] MEDS: REMOVE OLD PATCH T-DERMAL SCH (08:23)
[2017-11-19] MEDS: MULTIVITAMIN TAB PO SCH (08:24)
[2017-11-19] MEDS: METOPROLOL TARTRATE 25 MG TAB PO SCH ×2 (08:24→19:32)
[2017-11-19] MEDS: FOLIC ACID 1 MG TAB PO SCH (08:24)
[2017-11-19] MEDS: DIGOXIN 0.125 MG TAB PO SCH (08:24)
[2017-11-19] MEDS: THIAMINE HCL 100 MG TAB PO SCH (08:24)
[2017-11-19] MEDS: PANTOPRAZOLE SOD 40 MG DELAYED RELEASE TAB PO SCH (08:24)
[2017-11-19] MEDS: SODIUM CHLORIDE 0.9% FLUSH 10 ML FLUSH IV FLUSH SCH ×2 (08:24→19:33)
[2017-11-19] MEDS: methylPREDNISolone SOD SUCC 40 MG/1 ML VIAL IV PUSH SCH ×2 (08:24→19:32)
--- NOTE | 2017-11-19 11:09 | HHI.PR ---
Subjective Remarks No signs of worsening delirium tremens at this point status post weaned down from 10 mg to 5 mg of Librium. Patient has no complaints. There is a mild elevation in his heart rate compared to yesterday which is part of the DTs. Objective Vital Signs Date Time Temp Pulse Resp B/P (MAP) Pulse Ox O2 Delivery O2 Flow Rate FiO2 11/19/17 08:00 98.1 108 23 142/76 (98) 98 11/19/17 08:00 100 11/19/17 07:20 98 21 11/19/17 07:00 102 17 150/86 (107) 11/19/17 06:00 100 15 143/89 (107) 11/19/17 06:00 100 11/19/17 05:07 104 11/19/17 05:07 104 18 132/90 (104) 11/19/17 04:00 97.3 90 20 141/86 (104) 97 11/19/17 04:00 90 11/19/17 03:00 102 17 127/88 (101) 11/19/17 03:00 102 11/19/17 02:00 90 17 139/87 (104) 11/19/17 02:00 90 11/19/17 01:00 94 11/19/17 01:00 94 14 122/78 (93) 11/19/17 00:00 100 11/19/17 00:00 98.4 100 15 119/76 (90) 97 11/18/17 23:32 100 11/18/17 23:32 100 14 116/83 (94) 11/18/17 22:09 96 11/18/17 22:09 96 19 106/81 (89) 11/18/17 22:00 97 21 11/18/17 21:09 96 19 109/76 (87) 11/18/17 20:09 88 11/18/17 20:09 98.3 93 17 103/72 (82) 97 11/18/17 20:00 97 Room Air 11/18/17 19:09 116 17 118/75 (89) 18 18:00 130 11/18/17 18:00 130 17 115/73 (87) 11/18/17 17:11 124 27 117/79 (92) 11/18/17 16:00 97.6 100 15 112/78 (89) 97 11/18/17 16:00 100 11/18/17 15:01 108 15 106/70 (82) 11/18/17 14:00 108 21 98/67 (77) 11/18/17 14:00 108 11/18/17 13:00 116 18 118/67 (84) 98 11/18/17 12:00 108 11/18/17 12:00 97.8 108 14 115/80 (92) 11/18/17 11:01 102 19 108/75 (86) I/O 11/18/17 11/18/17 11/18/17 11/19/17 11/19/17 11/19/17 07:00 15:00 23:00 07:00 15:00 23:00 Intake Total 1200 ml 1400 ml 1000 ml Output Total 2200 ml 2300 ml Balance -1000 ml 1400 ml -1300 ml Intake Oral 1200 ml 1400 ml 1000 ml Output Urine Total 2200 ml 2300 ml # Voids 6 # Bowel Movements 1 3 Result Diagram: 11/18/17 0533 11/18/17 0533 Objective Remarks GENERAL: NAD, A&Ox3 HEAD: Normocephalic. NECK: Supple, trachea midline. No lymphadenopathy. EYES: No scleral icterus. No injection or drainage. CARDIOVASCULAR: Regular rate and rhythm without murmurs, gallops, or rubs. RESPIRATORY: Breath sounds equal bilaterally. No accessory muscle use. GASTROINTESTINAL: Abdomen soft, non-tender, nondistended. MUSCULOSKELETAL: No cyanosis, or edema. SKIN: Warm and dry. NEURO: No focal neurological deficitis. A/P Problem List: (1) Alcohol abuse ICD Code: F10.10 - Alcohol abuse Status: Acute (2) Falls frequently ICD Code: R29.6 - Repeated falls (3) COPD exacerbation ICD Code: J44.1 - Chronic obstructive pulmonary disease with (acute) exacerbation Status: Acute (4) Hyponatremia ICD Code: E87.1 - Hypo-osmolality and hyponatremia Status: Acute (5) COPD (chronic obstructive pulmonary disease) ICD Code: J44.9 - Chronic obstructive pulmonary disease Status: Acute (6) Alcohol withdrawal ICD Code: F10.239 - Alcohol dependence with withdrawal, unspecified Status: Acute Assessment and Plan 57-year-old male admitted secondary to hyponatremia, COPD exacerbation, and delirium tremens. Continue 5 mg of Librium through today and wean Librium off tomorrow starting in the a.m. Monitor for 1-2 more days in regards to delirium tremens and heart rate. Patient may need to discharge on current cardiac treatments and inhaled albuterol as needed. A. fib RVR Continue beta darío Continue calcium channel darío Continue digoxin Follow on telemetry Cardiology consulted COPD exacerbation Continue oxygen support as needed Continue nebulized treatments as needed Rapid improvement suggests component of pulmonary edema may have been present Steroids discontinued Hyponatremia Improving slowly Continue IV hydration with normal saline Follow sodium levels Etiology suspected to be related to alcohol abuse Alcohol abuse Continue Librium CIWA protocol Continue thiamine Continue folic acid Continue multivitamin Monitor for seizure activity Recurrent falls Generalized weakness Likely related to alcohol abuse Continue physical therapy DVT prophylaxis Fall risk, avoid blood thinners for now SCDs Angel Ochoa MD Nov 19, 2017 11:08
[2017-11-19] MEDS: METHOCARBAMOL 500 MG TAB PO PRN (19:32)
[2017-11-19] MEDS: GABAPENTIN 300 MG CAP PO SCH (19:32)
[2017-11-20] MEDS: DILTIAZEM HCL 60 MG TAB PO SCH ×3 (00:27→13:10)
[2017-11-20] MEDS: ACETAMINOPHEN/HYDROcodone 325 MG/7.5 MG TAB PO PRN ×2 (00:28→05:47)
[2017-11-20 04:00] VITALS: BP 118/72; PULSE 98; RESP 16; TEMP 98.6; O2SAT 97
[2017-11-20 04:53] LABS: HEMATOCRIT 40.3 % (39.0-51.0); MEAN CELL VOLUME 106.9 FL (80.0-100.0); MEAN CORPUSCULAR HEMOGLOBIN 37.1 PG (27.0-34.0); MEAN CORPUSCULAR HGB CONC 34.7 % (32.0-36.0); MEAN PLATELET VOLUME 7.2 FL (7.0-11.0); PLATELET COUNT 383 TH/MM3 (150-450); RED BLOOD COUNT 3.77 MIL/MM3 (4.50-5.90); RED CELL DISTRIBUTION WIDTH 14.5 % (11.6-17.2); WHITE BLOOD COUNT 10.9 TH/MM3 (4.0-11.0)
[2017-11-20 05:12] LABS: CALCIUM 8.3 MG/DL (8.5-10.1)
[2017-11-20 05:13] LABS: BICARBONATE 27.3 MEQ/L (21.0-32.0)
[2017-11-20 05:16] LABS: CREATININE 0.62 MG/DL (0.60-1.30)
[2017-11-20 08:00] VITALS: PULSE 99
[2017-11-20] MEDS: THIAMINE HCL 100 MG TAB PO SCH (08:07)
[2017-11-20] MEDS: NICOTINE 21 MG/24 HR PATCH T-DERMAL SCH (08:07)
[2017-11-20] MEDS: SODIUM CHLORIDE 0.9% FLUSH 10 ML FLUSH IV FLUSH SCH (08:07)
[2017-11-20] MEDS: methylPREDNISolone SOD SUCC 40 MG/1 ML VIAL IV PUSH SCH (08:07)
[2017-11-20] MEDS: FOLIC ACID 1 MG TAB PO SCH (08:07)
[2017-11-20] MEDS: MULTIVITAMIN TAB PO SCH (08:07)
[2017-11-20] MEDS: METOPROLOL TARTRATE 25 MG TAB PO SCH (08:07)
[2017-11-20] MEDS: PANTOPRAZOLE SOD 40 MG DELAYED RELEASE TAB PO SCH (08:07)
[2017-11-20 08:19] VITALS: BP 132/83; PULSE 108; RESP 19; TEMP 97.9; O2SAT 99
[2017-11-20] MEDS: DIGOXIN 0.125 MG TAB PO SCH (09:00)
[2017-11-20] MEDS: REMOVE OLD PATCH T-DERMAL SCH (09:00)
[2017-11-20 12:00] VITALS: BP 127/78
[2017-11-20] MEDS ORDERED: METO25TA3 PO (13:45)
[2017-11-20] MEDS ORDERED: DILT1TAB2 PO (13:45)
[2017-11-20] MEDS ORDERED: VENTAER INH (13:45)
[2017-11-20] MEDS ORDERED: DIGO0.12 PO (13:45)
[2017-11-20] MEDS ORDERED: Albuterol-Ipratropium Neb NEB (13:45)
[2017-11-20] MEDS ORDERED: ASPI-183 PO (13:47)
[2017-11-20] MEDS ORDERED: PANT40TA3 PO (13:47)
--- NOTE | 2017-11-20 13:49 | HHI.DS ---
Discharge Summary Admission Date Nov 09, 2017 at 09:17 Discharge Date: Nov 20, 2017 Admitting Diagnosis Hyponatremia, COPD exacerbation (1) COPD exacerbation ICD Code: J44.1 - Chronic obstructive pulmonary disease with (acute) exacerbation Status: Acute (2) Hyponatremia ICD Code: E87.1 - Hypo-osmolality and hyponatremia Status: Acute (3) Alcohol abuse ICD Code: F10.10 - Alcohol abuse Status: Acute (4) Falls frequently ICD Code: R29.6 - Repeated falls Procedures None Brief History - From Admission This patient is a very pleasant 57-year-old gentleman with a history of COPD COPD and alcohol dependency. He came to the emergency room with increasing shortness of breath for 1 week and worse over the last 2 days. He has a hand- held inhaler at home which was not helpful in improving his breathing. He had some increased dyspnea on exertion and difficulty taking deep breaths. He does admit a cough. He has had a history of alcohol dependency in the past over the last several months has relapsed after quite a long three-year period of sobriety. Patient says he drinks at least a 12 pack a day. He presents at this time with bruises, frequent falls, hyponatremic and generalized weak and malnourished status. Patient says his respiratory status did improve after nebulizer. He is found to have a sodium of 119 and has been admitted to the hospital for further evaluation of hyponatremia and COPD exacerbation. CBC/BMP: 11/20/17 0413 11/20/17 0413 Significant Findings Laboratory Tests Test 11/18/17 05:33 11/20/17 04:13 Red Blood Count 3.74 MIL/MM3 (4.50-5.90) 3.77 MIL/MM3 (4.50-5.90) Mean Corpuscular Volume 107.6 FL (80.0-100.0) 106.9 FL (80.0-100.0) Mean Corpuscular Hemoglobin 36.3 PG (27.0-34.0) 37.1 PG (27.0-34.0) Neutrophils (%) (Auto) 84.9 % (16.0-70.0) Lymphocytes (%) (Auto) 6.9 % (9.0-44.0) Neutrophils # (Auto) 8.0 TH/MM3 (1.8-7.7) Lymphocytes # (Auto) 0.7 TH/MM3 (1.0-4.8) Random Glucose 113 MG/DL (74-106) 114 MG/DL (74-106) Albumin 3.2 GM/DL (3.4-5.0) Aspartate Amino Transf (AST/SGOT) 42 U/L (15-37) Alanine Aminotransferase (ALT/SGPT) 122 U/L (12-78) Sodium Level 134 MEQ/L (136-145) 135 MEQ/L (136-145) Blood Urea Nitrogen 23 MG/DL (7-18) Calcium Level 8.3 MG/DL (8.5-10.1) Imaging Last Impressions Head CT 11/15/17 0000 Signed Impressions: Service Date/Time: Wednesday, November 15, 2017 23:47 - CONCLUSION: Normal examination. Heath Griggs Jr., MD Chest X-Ray 11/09/17 0737 Signed Impressions: Service Date/Time: November 07:38 - CONCLUSION: 1. Hyperinflation with stable biapical and bibasilar pleural-parenchymal scarring. 2. No superimposed acute infiltrate. Zeke Hernandez MD PE at Discharge GENERAL: This is a well-nourished, well-developed patient, in no apparent distress. CARDIOVASCULAR: Atrial fibrillation without murmurs, gallops, or rubs. RESPIRATORY: Clear to auscultation. Breath sounds equal bilaterally. No wheezes , rales, or rhonchi. GASTROINTESTINAL: Abdomen soft, non-tender, nondistended. Normal active bowel sounds MUSCULOSKELETAL: Extremities without clubbing, cyanosis, or edema. NEURO: Alert & Oriented x4 to person, place, time, situation. Moves all ext x4 Pt update on day of discharge Patient doing well today. Out of bed to chair. Discharge plans discussed with patient and spouse at length. Hospital Course This patient is a 57-year-old woman with a history of alcohol dependency. He was admitted for COPD exacerbation but apparently went into florid delirium tremens due to severe alcohol dependency issues. He also had atrial fibrillation which appeared to be controlled with medications. He was seen by cardiology and recognitions were from aspirin alone due to risk of fall and alcohol dependency. Patient is instructed to follow up as recommended Pt Condition on Discharge: Good Discharge Disposition: Discharge Home Discharge Time: > 30 minutes Discharge Instructions DIET: Follow Instructions for: As Tolerated, No Restrictions Activities you can perform: Regular-No Restrictions Follow up Referrals: PCP Follow-up - 1 Week New Medications: Aspirin (Aspirin) 325 Mg Tab 325 MG PO DAILY for afib, #30 TAB 0 Refills Diltiazem ER 24 HR (Cardizem LA) 240 Mg [place] 240 MG PO DAILY for afib, #30 TAB 0 Refills Digoxin (Digoxin) 0.125 Mg Tab 0.125 MG PO DAILY for heart, #31 TAB Metoprolol Tartrate (Metoprolol Tartrate) 25 Mg Tab 25 MG PO Q12HR for heart, #62 TAB Pantoprazole (Pantoprazole) 40 Mg Tab 40 MG PO DAILY for dyspepsia, #31 TAB [Albuterol-Ipratropium Neb] () 1 AMPULE NEBU 1 AMPULE NEB Q2HR NEB PRN for dyspnea, #90 Continued Medications: Albuterol 18 GM Inh (Ventolin Hfa 18 GM Inh) 90 Mcg/Act Aer 1 PUFF INH Q4H PRN for SHORTNESS OF BREATH, #1 INHALER 1 Refill (This prescription has been renewed) Gabapentin (Gabapentin) 300 Mg Cap 300 MG PO HS, #30 CAP 0 Refills Hydrocodone-Acetaminophen ([place]) 7.5-325 mg Tab 1 TAB PO Q6H PRN for PAIN, TAB 0 Refills Methocarbamol (Robaxin) 750 Mg Tab 750 MG PO QID for Muscle Spasm, TAB 0 Refills Jennifer Seay MD Nov 20, 2017 13:49
== END 2017-11-20 14:00 | disposition home or self-care (01) | DRG 191 ==
LOC: PHED 06:52 → PHEDA 09:17 → PH3B 12:13 → PHICU 11-11 02:37
PROVIDERS: ADMIT Hospitalist; ATTEND Hospitalist
DX: J44.1 Chronic obstructive pulmonary disease with (acute) exacerbation (principal); E87.1 Hypo-osmolality and hyponatremia; F10.231 Alcohol dependence with withdrawal delirium; D69.6 Thrombocytopenia, unspecified; E46 Unspecified protein-calorie malnutrition; I48.91 Unspecified atrial fibrillation; E87.6 Hypokalemia; F17.210 Nicotine dependence, cigarettes, uncomplicated; R29.6 Repeated falls; R26.9 Unspecified abnormalities of gait and mobility; Z23 Encounter for immunization; Z68.21 Body mass index [BMI] 21.0-21.9, adult
CPT/HCPCS: 70450; 71045; 80048; 80053; 82140; 82607; 83735; 83880; 83930; 83935; 84443; 84484; 85025; 85027; 85610; 85730; 87070; 87205; 87804; 90471; 90686; 93005; 94640; 94664; 94667; 94668; 96374; 96375; G0008; J1160; J1630; J2060; J2405; J2920; J2930; J3411; J3486; J7030; Q0163; Q2038